=== PATIENT | female | born 1940 | race Caucasian/White ===

== ENCOUNTER 2018-03-21 07:33 | Emergency (ER) | payer MEDICARE ==
[2018-03-21] MEDS ORDERED: Lisinopril TAB* 5 MG PO ONE (11:35)
[2018-03-21 11:58] LABS: Urine Appearance Clear; Urine Blood Negative (Negative); Urine Color Yellow; Urine Ketones Trace (Negative); Urine Protein Negative (Negative); Urine Specific Gravity 1.031 (1.010-1.030); Urine Urobilinogen Negative (Negative)
[2018-03-21 13:01] VITALS: BP 168/103
--- NOTE | 2018-03-22 00:44 | ED ---
Jeffrey Melissa Julia, scribed for Yoon Zee MD on 03/21/18 at 1119 . GI/ HPI - HPI Summary HPI Summary: This patient is a 77 year old F presenting to [facility] accompanied by her granddaughter, Ronel, with a chief complaint of a bad prolapse. She reports previous uterine prolapse but is unsure if the current prolapse is her uterus. These symptoms have been occurring for years but have significantly worsened the past few weeks with pain, hematuria, difficulty with BM's, and burning with urination. Pain is 8/10n in severity. Pain aggravated by sitting. A pessary was placed previously for her prolapse but pt states the pessary just fell out. 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 She has not taken her morning Lisinopril (5mg), but is otherwise not taking any other regular medications. Patient is hoping for a gynecologic referral. - History of Current Complaint Chief Complaint: EDOBProblems Time Seen by Provider: 03/21/18 11:08 Stated Complaint: GI PROBLEM Hx Obtained From: Patient, Family/Deaf And Hard Of Hearing Teacher - granddaughter Onset/Duration: Started Weeks Ago, Worse Since - past month Timing: Constant Severity: Mild Current Severity: Moderate Number of Pads per Day: 0 Number of Pads per Hour: 0 Pain Intensity: 8 Location of Pain: Other - at site of prolapse Additional Location for Females: Uterus - prolapsed Pain Characteristics: Sharp, Burning Associated Signs and Symptoms: Positive: Hematuria, Dysuria, Other: - difficulty with BM's Additional Signs & Symptoms: Positive: Other: - prolapsed uterus Aggravating Factor(s): Straining, Movement - standing, Sitting Alleviating Factor(s): Nothing - Allergy/Home Medications Allergies/Adverse Reactions: Allergies Allergy/AdvReac Type Severity Reaction Status Date / Time No Known Allergies Allergy Verified 03/28/18 03:19 PMH/Surg Hx/FS Hx/Imm Hx Previously Healthy: No Endocrine/Hematology History: Denies: Hx Anticoagulant Therapy, Hx Diabetes, Hx Thyroid Disease Cardiovascular History: Reports: Hx Hypertension Denies: Hx Pacemaker/ICD Respiratory History: Denies: Hx Asthma, Hx Chronic Obstructive Pulmonary Disease (COPD) History: Denies: Hx Renal Disease Neurological History: Denies: Hx Dementia, Hx Seizures Psychiatric History: Denies: Hx Substance Abuse - Surgical History Surgery Procedure, Year, and Place: cholecystectomy, tubal ligation - Immunization History Date of Tetanus Vaccine: 2008 Date of Influenza Vaccine: 2011 Infectious Disease History: No Infectious Disease History: Denies: Hx Hepatitis, Hx Human Immunodeficiency Virus (HIV), Traveled Outside the [place] in Last 30 Days - Family History Known Family History: Positive: Cardiac Disease, Other - cancer - Social History Alcohol Use: None Substance Use Type: Reports: None Smoking Status (MU): Never Smoked Tobacco Review of Systems Constitutional: Negative Cardiovascular: Negative Respiratory: Negative Gastrointestinal: Negative Positive: see HPI - prolapse, dysuria, hematuria, pain Musculoskeletal: Negative Skin: Negative Neurological: Negative Psychological: Normal All Other Systems Reviewed And Are Negative: Yes Physical Exam - Summary Physical Exam Summary: Appearance: well appearing, moderate pain distress, Well-nourished Skin: Warm, color reflects adequate perfusion; confluent redness on labia as per below in Head: Normal Head/Face inspection, Atraumatic Eyes: Conjunctiva clear ENT: Normal inspection Neck: Supple, no nodes, no JVD. Respiratory: Lungs clear, Normal breath sounds, no respiratory distress Cardio: RRR, No murmur, pulses normal, brisk capillary refill Abdomen: soft, nontender, no masses Bowel sounds: present : wearing panti-liner with pink tinged stain, external labia with red confluent rash and satellite lesions, uterine prolapse, cystocele and rectocele observed with cough, easily reducible, when pt stands cystocele protrudes beyond labia approximately one inch, Granddaughter Ronel is the loan teller for the exam. Musculoskeletal: Strength Intact/ ROM intact. No calf tenderness. No edema. Psychological: Normal Neuro: Alert, muscle tone normal, no focal deficit Triage Information Reviewed: Yes Vital Signs On Initial Exam: Initial Vitals Temp Pulse Resp BP Pulse Ox 97.2 F 105 16 170/96 94 03/21/18 07:36 03/21/18 07:36 03/21/18 07:36 03/21/18 07:36 03/21/18 07:36 Vital Signs Reviewed: Yes Diagnostics - Vital Signs Vital Signs Temp Pulse Resp BP Pulse Ox 03/21/18 11:00 87 97 03/21/18 10:51 85 148/102 97 03/21/18 10:21 85 156/107 94 03/21/18 10:00 89 94 03/21/18 09:52 91 166/104 95 03/21/18 09:22 90 152/110 95 03/21/18 09:00 92 94 03/21/18 08:53 95 169/107 96 03/21/18 08:22 98 168/104 94 03/21/18 08:00 103 95 03/21/18 07:52 101 176/114 95 03/21/18 07:51 101 95 03/21/18 07:36 97.2 F 105 16 170/96 94 - Laboratory Lab Statement: Any lab studies that have been ordered have been reviewed, and results considered in the medical decision making process. Re-Evaluation - Re-Evaluation 1 Re-Evaluation Time: 12:20 Change: Unchanged Comment: Pt is informed of discharge and follow up plan. Pt is agreeable to plan. GIGU Course/Dx - Course Course Of Treatment: 77 y/o F presents to ED accompanied by her grandaughterRonel, c/o a vaginal prolapse with dysuria, and hematuria. Uterine prolapse , Rectocele, Cystocele, and vaginitis indicated on examination. Patient's granddaughter Ronel, was the loan teller for exam.UA is indicative of a UTI. Patient has an appointment to see her PCP, Sanya Escalona BUSINESS PROCESS ASSOCIATE, next week. Dr. Guzman agrees to see this patient in his office. UTI will be treated with Bactrim. Vaginitis will be treated with Fluconazole. Patientis advised to apply OTC monistat externally. - Diagnoses Differential Diagnoses - Female: Candidiasis Provider Diagnoses: Uterine prolapse, Vaginitis, UTI (urinary tract infection), Rectocele, Cystocele - Physician Notifications Discussed Care Of Patient With: Gina Guzman - gynecology Time Discussed With Above Provider: 11:40 Instructed by Provider To: Other - will see as an outpatient Discharge - Sign-Out/Discharge Documenting (check all that apply): Discharge/Admit/Transfer - Discharge Plan Condition: Stable Disposition: HOME Prescriptions: Fluconazole 150 MG (NF) [Diflucan 150 mg (NF)] 150 mg PO ONCE #2 tab Sulfamethox/Trimethoprim DS* [Bactrim DS 800/160 TAB*] 1 tab PO BID #20 tab Patient Education Materials: Urinary Tract Infection in Women (ED), Vaginitis ( ED), Rectocele (ED), Cystocele (ED), Uterine Prolapse (ED) Referrals: Gina Guzman MD [Medical Doctor] - As Soon As Possible (Call their office tomorrow) Lyndsey Escalona [Primary Care Provider] - 4 Days (Keep your appt with Lyndsey Escalona, SULA[place]. ) Additional Instructions: We spoke with Dr. Guzman who is hotel recreational facilities manager for the [employer] in [place] today. Call their office to be seen as soon as possible. Take your medications as directed for UTI, and for yeast vaginitis. Change your pad as often as possible so the area stays dry. You may also use monistat cream externally on your labia for the yeast infection. Dr. Guzman suggests that you can try putting vaseline on the pad so that the prolapse is not so tender. Return to the ER if any new or worsening symptoms. Your prescriptions have been sent to [facility] in [place]! :) - Billing Disposition and Condition Condition: STABLE Disposition: HOME The documentation as recorded by the Jeffrey sánchez Julia accurately reflects the service I personally performed and the decisions made by me, Yoon Zee MD.
--- NOTE | 2018-03-25 00:02 | ED ---
Progress - Progress Note Progress Note: Final urine culture shows 25-50,000 strep group B, and 1-10,000 normal shelli. Patient was symptomatic with burning on urination. Was placed on Bactrim twice a day 10 days. continue with same Re-Evaluation - Re-Evaluation 1 Re-Evaluation Time: 12:20 Comment: Pt is informed of discharge and follow up plan. Pt is agreeable to plan. Course/Dx - Course Course Of Treatment: 77 y/o F presents to ED accompanied by her grandauRonel zamora, c/o a vaginal prolapse with dysuria, and hematuria. Rectocele, Cystocele, and vaginitis indicated on examination. Patient's granddaughter Ronel, was the sheet metal fabricator for exam.UA is indicative of a UTI. Patient has an appointment to see her PCP, Sanya Escalona NP, next week. Dr. Guzman agrees to see this patient in her office. UTI will be treated with Bactrim. Vaginitis will be treated with Fluconazole. Patientis advised to apply OTC monistat. - Diagnoses Provider Diagnoses: Uterine prolapse, Vaginitis, UTI (urinary tract infection), Rectocele, Cystocele - Provider Notifications Time Discussed With Above Provider: 11:40 Instructed by Provider To: Other - will see as an outpatient Discharge - Sign-Out/Discharge Documenting (check all that apply): Post-Discharge Follow Up - Discharge Plan Condition: Stable Disposition: HOME Prescriptions: Fluconazole 150 MG (NF) [Diflucan 150 mg (NF)] 150 mg PO ONCE #2 tab Sulfamethox/Trimethoprim DS* [Bactrim DS 800/160 TAB*] 1 tab PO BID #20 tab Patient Education Materials: Urinary Tract Infection in Women (ED), Vaginitis ( ED), Rectocele (ED), Cystocele (ED), Uterine Prolapse (ED) Referrals: Lyndsey Escalona [Primary Care Provider] - 4 Days (Keep your appt with Lyndsey Escalona NP. ) Gina Guzman MD [Medical Doctor] - As Soon As Possible (Call their office tomorrow) Additional Instructions: We spoke with Dr. Guzman who is electronics test engineer for the [employer] group in [place] today. Call their office to be seen as soon as possible. Take your medications as directed for UTI, and for yeast vaginitis. Change your pad as often as possible so the area stays dry. You may also use monistat cream externally on your labia for the yeast infection. Dr. Guzman suggests that you can try putting vaseline on the pad so that the prolapse is not so tender. Return to the ER if any new or worsening symptoms. Your prescriptions have been sent to [facility] in [place]! :) - Billing Disposition and Condition Condition: STABLE Disposition: HOME
== END 2018-03-21 13:01 | disposition home or self-care (01) ==
LOC: ED 07:33
DX: N81.4 Uterovaginal prolapse, unspecified (principal); N76.0 Acute vaginitis; N39.0 Urinary tract infection, site not specified
CPT/HCPCS: 81003; 81015; 87077; 87086; 99283; A9270-GY

== ENCOUNTER 2018-03-28 02:52 | Observation (INO) | payer MEDICARE ==
[2018-03-28] MEDS ORDERED: NS 0.9% 1000 ML* 1,000 ML IV ONE (03:19)
[2018-03-28] MEDS ORDERED: PROCHLORPERAZINE INJ 5 MG/ML 2 ML VIAL IV ONE (03:21)
[2018-03-28 03:54] LABS: ABS Basophils 0.1 10^3/ul (0-0.2); ABS Eosinophils 0 10^3/ul (0-0.6); ABS Lymphocytes 0.9 10^3/ul (1.0-4.8); ABS Monocytes 0.5 10^3/ul (0-0.8); ABS Neutrophils 10.7 10^3/ul (1.5-7.7); ABS Nucleated RBC 0 10^3/ul; Eosinophil % 0.1 % (0-6); Hematocrit 40 % (35-47); Hemoglobin 13.4 g/dl (12.0-16.0); Lymphocyte % 7.1 % (25-47); Mean Corpuscular HGB Conc 34 g/dl (31-36); Mean Corpuscular Hemoglobin 31 pg (27-31); Mean Corpuscular Volume 92 fL (80-97); Nucleated Red Blood Cells % 0; Platelet Count 202 10^3/ul (150-450); Red Cell Distribution Width 14 % (10.5-15); White Blood Count 12.2 10^3/ul (3.5-10.8)
[2018-03-28 04:01] LABS: EGFR Non-African American 95.6 (>60)
[2018-03-28 04:03] LABS: Urine Appearance Clear; Urine Blood Negative (Negative); Urine Color Straw; Urine Ketones Trace (Negative); Urine Protein Negative (Negative); Urine Specific Gravity 1.022 (1.010-1.030); Urine Urobilinogen Negative (Negative)
[2018-03-28] MEDS ORDERED: Meclizine TAB* 12.5 MG PO ONE (06:20)
[2018-03-28] MEDS ORDERED: Diazepam TAB(*) 5 MG PO ONE ×2 (07:56→08:01)
[2018-03-28] MEDS ORDERED: NS 0.9% 1000 ML* 1,000 ML IV SCH (08:00)
[2018-03-28] MEDS ORDERED: PROCHLORPERAZINE INJ 5 MG/ML 2 ML VIAL IV PRN (08:46)
[2018-03-28] MEDS ORDERED: Acetaminophen TAB* 325 MG PO PRN (08:46)
--- NOTE | 2018-03-28 08:57 | ED ---
I, Theo Roberts, scribed for Quang Negron MD on 03/28/18 at 0733 . Progress - Progress Note Progress Note: This patient was signed out from Dr. Rodarte awaiting symptoms resolution. Currently the patient is still dizzy and describes it as the room spinning. She denies CP, HODGSON, and double vision. Re-Evaluation - Re-Evaluation First Eval Re-Evaluation Time: 07:22 Change: Unchanged Comment: She states she still is feeling sick with nausea and dizziness. She states is she can walk she would like to leave. Course/Dx - Course Course Of Treatment: Patient is signed out by Dr. Reveles. He reports that the patient is a 77-year-old female with vertigo. She gave Compazine and meclizine and symptoms have not improved. I Believe the Patient and She Is Unable Secondary to Her Vertigo. At This Point the Patient Was Given Valium and I Discussed the Findings and Results with Dr. Singleton and she accepted patient for admission. Patient was hemodynamically stable alert and oriented 3 - Diagnoses Provider Diagnoses: Vertigo - Provider Notifications Discussed Care Of Patient With: Klaudia Alexander Time Discussed With Above Provider: 08:01 Instructed by Provider To: Admit As Observation Discharge - Sign-Out/Discharge Documenting (check all that apply): Discharge/Admit/Transfer - admitted - Discharge Plan Condition: Fair Disposition: ADMITTED TO [facility] Referrals: Lyndsey Escalona [Primary Care Provider] - - Billing Disposition and Condition Condition: FAIR [place]position[place] [facility] The documentation as recorded by the Armando sánchez Gabriel accurately reflects the service I personally performed and the decisions made by me, Quang Negron MD.
--- NOTE | 2018-03-28 09:15 | RAD ---
HISTORY: Dizziness COMPARISONS: None TECHNIQUE: Multiple contiguous axial CT scans were obtained of the head without intravenous contrast. FINDINGS: HEMORRHAGE/INFARCT: There is no hemorrhage or acute infarct. MASSES/SHIFT: There is no mass or shift. EXTRA-AXIAL SPACES: There are no extra-axial fluid collections. SULCI AND VENTRICLES: The sulci and ventricles are normal in size and position for the patient's stated age. CEREBRUM: There are no focal parenchymal abnormalities. BRAINSTEM: There are no focal parenchymal abnormalities. CEREBELLUM: There are no focal parenchymal abnormalities. VESSELS: The vessels are grossly normal. PARANASAL SINUSES: The paranasal sinuses are clear. ORBITS: The orbits are unremarkable. BONES AND SOFT TISSUE: No bone or soft tissue abnormalities are noted. OTHER: None IMPRESSION: NO ACUTE INTRACRANIAL PATHOLOGY.
[2018-03-28] MEDS: Meclizine TAB* 12.5 MG PO SCH ×3 (11:01→20:04)
[2018-03-28] MEDS: NS 0.9% 1000 ML* 1,000 ML IV SCH ×2 (11:02→22:49)
[2018-03-28] MEDS: Lisinopril TAB* 5 MG PO SCH (11:02)
--- NOTE | 2018-03-28 11:11 | HP ---
CC: Lyndsey Escalona NP HISTORY AND PHYSICAL: DATE OF ADMISSION: 03/28/18 TIME OF EVALUATION: 8:30 a.m. PRIMARY CARE PROVIDER: Lyndsey Escalona NP. CHIEF COMPLAINT: "I am dizzy." HISTORY OF PRESENT ILLNESS: Ms. Millan is a 77-year-old lady with a past medical history of hyperte nsion and uterine prolapse, who presents to the emergency room with complaints of dizziness. She states that last week she was diagnosed with urinary tract infection and was started on Bactrim f or it. She states that she never took this medication before and was not aware of having any reactio ns. Yesterday, she was fasting to have a blood test done and after the test became really dizzy and nauseated to the point that her family had to carry her to [facility]. She states that she felt a little better and went home, but overnight the dizziness became severe, as sociated with multiple episodes of vomiting that prompted her ER visit. She received meclizine, diazepam, IV fluids, and she felt better, but when she tried to ambulate she was very unsteady on her feet and felt nauseated again, so the hospitalist service was consulted. She denies headache, visual changes, fever, chills. She states her dizziness feels like the room is spinning. She does complain of some popping on her right ear, but no pain or discharge. She denies any episodes of dizziness like this in the past. PAST MEDICAL HISTORY: 1. Hypertension. 2. Uterine prolapse. 3. Status post cholecystectomy. MEDICATION LIST: 1. Bactrim DS 1 tablet p.o. b.i.d. 2. Lisinopril 5 mg p.o. daily. 3. Fluconazole 150 mg p.o. x1. ALLERGIES: No known drug allergies. FAMILY HISTORY: Father had a history of heart disease. Brother had pancreatic cancer and had breast cancer. There is also a family history of diabetes. SOCIAL HISTORY: The patient denies alcohol or tobacco use. Surrogate decision maker is her , Eder Millan, phone number is [phone]. REVIEW OF SYSTEMS: A 14-point review of systems was performed and all the pertinent negative and pos itive findings are in the HPI. PHYSICAL EXAMINATION GENERAL: The patient is a pleasant elderly female, lying in bed, in no acute distress. VITAL SIGNS: Temperature 97.5, heart rate is 93, respiratory rate is 18, oxygen saturation is 95% on room air, blood pressure is 149/93. HEENT: Pupils are equal. The patient has nystagmus with fast component to the left. Extraocular mo vements are intact. Moist mucous membranes. CHEST: Breath sounds present bilaterally, with no added sounds. CVS: Normal S1, S2. Regular rate and rhythm. ABDOMEN: Soft. Bowel sounds are present. EXTREMITIES: No edema. NEURO: She is alert, awake, and oriented x3, able to move all 4 extremities. Power is intact in all 4. [id number] is normal. LABORATORY/IMAGING DATA: The patient had a CBC that showed a WBC of 12.2, hemoglobin of 13.4, hemat ocrit of 40, platelets of 202, with 88% neutrophils. Her chemistry showed a sodium of 132, potassium of 3.9, chloride of 103, bicarb of 19, BUN of 18, creatinine of 0.61, glucose of 372, with a calcium of 8.2. Urinalysis showed 3+ glucose, 1+ LE, and trace ketones. ASSESSMENT AND PLAN: Mrs. Millan is a 77-year-old lady with a past medical history of hypertension, uterine prolapse, that presented to the emergency room with complaints of dizziness, found to have v ertigo resistant to treatment provided in the emergency room. 1. Vertigo: I believe this is probably multifactorial in the setting of hyperglycemia and Bactrim u se. Her neurological exam is normal, except for the nystagmus. So, I suspect this is probably perip heral in nature. She will be admitted to telemetry floor. We are going to check a CT of the brain without contrast. She will have neurological checks and symptomatic treatment with meclizine, Valium, and Compazine. If the patient's symptoms persist, we may have to look for a NURSE RN BSN source with an MRI of the brain. 2. Hyperglycemia: The patient denies the diagnosis of diabetes or being told in the past that her g lucose was high. I am going to monitor her fingersticks and check a hemoglobin A1c to confirm that t his hyperglycemia is diabetes. 3. Hypertension: Her blood pressure is controlled. I am going to continue her lisinopril as tolera feliciano. 4. DVT prophylaxis: The patient has a score of 3 on the DVT Prophylaxis Risk Assessment Guide and s he will be started on subcutaneous heparin. 5. Code status is full. TIME SPENT: Approximately 45 minutes were spent with the patient and family interview, medical recor ds review, physical examination to complete this admission; more than half of this time was spent fac e-to-face with the patient and coordination of care. [id number]/[facility] #: [id number]
[2018-03-28] MEDS ORDERED: Dextrose 50% Syringe 50 ML* 25 GM/50 ML SYRINGE IV PUSH PRN (11:21)
[2018-03-28] MEDS: Diazepam TAB(*) 5 MG PO SCH ×2 (11:39→17:45)
[2018-03-28] MEDS: Heparin VIAL(*) 5000 UNITS/ML VIAL (FIVE THOUSAND) SUBCUT SCH ×2 (13:26→20:04)
[2018-03-28] MEDS: Insulin LISPRO* 1 UNITS UNIT SUBCUT SCH ×3 (13:27→20:04)
[2018-03-29] MEDS: Diazepam TAB(*) 5 MG PO SCH ×2 (03:32→08:19)
[2018-03-29] MEDS: Meclizine TAB* 12.5 MG PO SCH ×2 (04:46→13:23)
[2018-03-29] MEDS: Heparin VIAL(*) 5000 UNITS/ML VIAL (FIVE THOUSAND) SUBCUT SCH ×2 (04:46→13:21)
[2018-03-29] MEDS: Lisinopril TAB* 5 MG PO SCH (08:18)
[2018-03-29] MEDS: NS 0.9% 1000 ML* 1,000 ML IV SCH (08:19)
[2018-03-29] MEDS: Insulin LISPRO* 1 UNITS UNIT SUBCUT SCH ×2 (08:19→12:09)
[2018-03-29] MEDS ORDERED: glipiZIDE TAB.XL* 5 MG PO SCH (09:00)
[2018-03-29 11:35] VITALS: BP 140/83
--- NOTE | 2018-03-29 14:23 | CONSULT ---
Subjective Reason for Visit: Dizziness Admission Date: 03/28/18 Glucose Level On Admission: 372 History Of Present Illness: Ms. Millan is a 77 year old female, who presented to the ER on 03/28/18 complaining of dizziness. She had been fasting for blood work and after the test was complete she became dizzy, nauseated and weak. Later that night, symptoms worsened and she began vomiting, at which point her family took her to the ER. Blood glucose on admission was noted to be 372. Hgb A1C 12%. Pt was given new diagnosis of type II diabetes. Of note, she does report ongoing treatment for chronic UTI and had been started on Bactrim DS this week. Patient History Surgical History: Yes Surgery Procedure, Year, and Place: cholecystectomy, tubal ligation Lives With: Family Marital Status: Social Support: at bedside. Multiple family members in the area. Preferred/Primary Language: Czech Hx Tobacco Use: No Review Of Systems - Review of Systems Constant: - - As stated in HPI Respiratory: No Shortness Of Breath Neurological: - - As stated in HPI Objective Allergies Allergy/AdvReac Type Severity Reaction Status Date / Time No Known Allergies Allergy Verified 03/28/18 03:19 Home Medications Medication Instructions Recorded Confirmed Type Lisinopril TAB* [Prinivil TAB 10 5 mg PO DAILY 02/14/13 03/28/18 History MG*] Blood-Glucose Meter [Onetouch 1 strip XX DAILY #50 strip 03/29/18 Rx Ultra 2] Diazepam TAB(*) [Valium TAB(*)] 5 mg PO Q8H #10 tab MDD 15mg 03/29/18 Rx Lancets [Onetouch Ultrasoft Lancet] 1 mis XX DAILY #50 mis 03/29/18 Rx Meclizine HCl [Dramamine Less 25 mg PO TID #30 tablet 03/29/18 Rx Drowsy] glipiZIDE TAB.XL* [Glucotrol Xl*] 5 mg PO DAILY #30 tab.xl 03/29/18 Rx Hospital Medications: Current Medications Acetaminophen (Tylenol Tab*) 650 mg PO Q6H PRN PRN Reason: pain/fever Dextrose (D50w Syringe 50 Ml*) 12.5 gm IV PUSH .FOR FS < 60 - SS PRN PRN Reason: FS < 60 Diazepam (Valium Tab(*)) 5 mg PO Q8H VALERIO Last Admin: 03/29/18 08:19 Dose: 5 mg Glipizide (Glucotrol Xl*) [address] [facility] Last Admin: 03/29/18 08:18 Dose: 5 mg Heparin Sodium (Porcine) (Heparin Vial(*)) 5,[address] [facility] Last Admin: 03/29/18 13:21 Dose: Not Given Sodium Chloride (Ns 0.9% 1000 Ml*) 1,000 mls @ 100 mls/hr IV PER RATE [facility] Last Admin: 03/29/18 08:19 Dose: 100 mls/hr Insulin Human Lispro (Humalog*) [address] [facility] PRN Reason: Protocol Last Admin: 03/29/18 12:09 Dose: 3 units Lisinopril (Prinivil Tab*) [address] [facility] Last Admin: 03/29/18 08:18 Dose: 5 mg Meclizine HCl (Antivert Tab*) [address] [facility] Last Admin: 03/29/18 13:23 Dose: 25 mg Prochlorperazine Edisylate (Compazine Inj*) 5 mg IV Q6H PRN PRN Reason: NAUSEA/VOMITING Lab Data: Sodium 132 mmol/L (139-145) L 03/28/18 03:34 Potassium 3.9 mmol/L (3.5-5.0) 03/28/18 03:34 BUN 18 mg/dL (6-24) 03/28/18 03:34 Creatinine 0.61 mg/dL (0.51-0.95) 03/28/18 03:34 Hemoglobin A1c 12.0 % (4.0-5.6) H 03/28/18 03:34 Calcium 8.2 mg/dL (8.6-10.3) L 03/28/18 03:34 Vital Signs: Vital Signs 03/29/18 03/29/18 03/29/18 06:29 07:25 08:19 Temperature 36.7 C Pulse Rate 73 Respiratory 18 20 18 Rate Blood Pressure 130/73 (mmHg) O2 Sat by Pulse 98 Oximetry 03/29/18 03/29/18 10:40 11:06 Temperature 36.7 C Pulse Rate 82 Respiratory 18 16 Rate Blood Pressure 140/83 (mmHg) O2 Sat by Pulse 98 Oximetry Height: 4 ft 11 in Weight: 52.435 kg Body Mass Index (BMI): 23.3 Physical Exam General Appearance: Positive: Alert, Oriented x3, Well Developed, No Distress Dentition: Positive: Dentition in Good Repair Cardiovascular: Positive: RRR Plan Of Care Patient's Next Step: Plan is for patient to be discharged on Glipizide. We discussed signs, symptoms , prevention, and treatment of hypoglycemia. Emphasized the importance of regular meal pattern, consistent CHO diet on this medication. She was given a glucometer and given instruction on its use. She provided return demonstration x2. Lifestyle modification briefly discussed, pt agrees to outpatient follow up at [facility] upon discharge. Referral To: [facility] For Further OutPT Diabetic Training, DSME Diagnosis: Type II diabetes with hyperglycemia Education Prior Diabetic Education: No Education Provided: Blood Glucose Monitoring, When To Seek Medical Attention Handouts Provided: Living Well With Diabetes, 45 g. CHO meal plan, My Plate Goals Goals: According to the [place] [employer], the following are your goals for Hemaglobin A1C, Blood Glucose. Hemaglobin A1C * <7.0% for most * <6.5% for "healthy" * <8.0% for "Less Healthy" Blood Glucose * Fasting Blood Glucose: 80-130 mg/dl * 2 Hour Post Prandial Glucose <180 mg/dl
--- NOTE | 2018-04-01 01:10 | ED ---
Jeffrey Melissa Julia, scribed for Jose Angel Rodarte MD on 03/28/18 at 0417 . Dizziness - HPI Summary HPI Summary: This patient is a 77 year old F BIBA to [facility] accompanied by her family with a chief complaint of dizziness and vomiting for the past couple of days that has worsened today. Patient reports a currently resolved headache. About a week ago she started Sulfa drugs to treat a UTI. She had mild dizziness this past week. She fasted prior to bloodwork yesterday morning and had increased nausea, and dizziness now with vomiting. Dizziness is described as spinning. Dizziness worsened with head movement. - History Of Current Complaint Chief Complaint: EDNauseaVomitDiarrh Stated Complaint: NAUSEA/VOMITING Time Seen by Provider: 03/28/18 03:09 Hx Obtained From: Patient Onset/Duration: Gradually Severity Initially: Mild Severity Currently: Moderate Character: Room Spinning Aggravating Factor(s): Change In Head Position Alleviating Factor(s): Nothing Associated Signs And Symptoms: Positive: Nausea, Vomiting - Allergies/Home Medications Allergies/Adverse Reactions: Allergies Allergy/AdvReac Type Severity Reaction Status Date / Time No Known Allergies Allergy Verified 03/28/18 03:19 PMH/Surg Hx/FS Hx/Imm Hx Endocrine/Hematology History: Reports: Hx Diabetes Denies: Hx Anticoagulant Therapy, Hx Thyroid Disease Cardiovascular History: Reports: Hx Hypertension Denies: Hx Pacemaker/ICD Respiratory History: Denies: Hx Asthma, Hx Chronic Obstructive Pulmonary Disease (COPD) History: Reports: Other Problems/Disorders - prolapse uterus Denies: Hx Renal Disease Neurological History: Denies: Hx Dementia, Hx Seizures, Other Neuro Impairments/Disorders - vertigo Psychiatric History: Denies: Hx Substance Abuse - Surgical History Surgery Procedure, Year, and Place: cholecystectomy, tubal ligation - Immunization History Date of Tetanus Vaccine: 2008 Date of Influenza Vaccine: 2011 Infectious Disease History: No Infectious Disease History: Denies: Hx Hepatitis, Hx Human Immunodeficiency Virus (HIV), Traveled Outside the [place] in Last 30 Days - Family History Known Family History: Positive: Cardiac Disease, Other - cancer - Social History Alcohol Use: None Substance Use Type: Reports: None Smoking Status (MU): Never Smoked Tobacco Review of Systems Positive: Vomiting, Nausea Neurological: Other - dizziness All Other Systems Reviewed And Are Negative: Yes Physical Exam - Summary Physical Exam Summary: Appearance: Well-appearing, Well-nourished, lying in bed comfortably Skin: Warm, dry, no obvious rash Eyes: sclera anicteric, no conjunctiva pallor, PERRL, no extra ocular movement ENT: mucous membranes moist, pharynx appears normal Neck: Supple, nontender Respiratory: Clear to auscultation, no signs of respiratory distress Cardiovascular: Normal S1, S2. No murmurs. Normal distal pulses in tibial and radial bilaterally. Abdomen: Soft, nontender, normal active bowel sounds present Musculoskeletal: Normal, Strength/ROM Intact Neurological: A&Ox3, awake and alert, mentation is normal, speech is fluent and appropriate, negative finger to nose, no ataxia, no nystagmus to either direction Psychiatric: affect is normal, does not appear anxious or depressed Triage Information Reviewed: Yes Vital Signs On Initial Exam: Initial Vitals Pulse BP Pulse Ox 80 186/109 96 03/28/18 02:50 03/28/18 02:50 03/28/18 02:50 Vital Signs Reviewed: Yes Diagnostics - Vital Signs Vital Signs Temp Pulse Resp BP Pulse Ox 03/28/18 03:04 81 96 03/28/18 03:02 97.5 F 77 18 186/109 96 03/28/18 02:50 80 186/109 96 - Laboratory Lab Results: Lab Results 03/28/18 03/28/18 03/28/18 Range/Units 03:34 03:34 03:50 WBC 12.2 H (3.5-10.8) 10^3/ul RBC 4.30 (4.0-5.4) 10^6/ul Hgb 13.4 (12.0-16.0) g/dl Hct 40 (35-47) % MCV 92 (80-97) fL MCH 31 (27-31) pg MCHC 34 (31-36) g/dl RDW 14 (10.5-15) % Plt Count 202 (150-450) 10^3/ul MPV 8.0 (7.4-10.4) um3 Neut % (Auto) 88.1 H (38-83) % Lymph % (Auto) 7.1 L (25-47) % [place] % (Auto) 4.1 (0-7) % Eos % (Auto) 0.1 (0-6) % Baso % (Auto) 0.6 (0-2) % Absolute Neuts (auto) 10.7 H (1.5-7.7) 10^3/ul Absolute Lymphs (auto) 0.9 L (1.0-4.8) 10^3/ul Absolute Monos (auto) 0.5 (0-0.8) 10^3/ul Absolute Eos (auto) 0 (0-0.6) 10^3/ul Absolute Basos (auto) 0.1 (0-0.2) 10^3/ul Absolute Nucleated RBC 0 10^3/ul Nucleated RBC % 0 Sodium 132 L (139-145) mmol/L Potassium 3.9 (3.5-5.0) mmol/L Chloride 103 (101-111) mmol/L Carbon Dioxide 19 L (22-32) mmol/L Anion Gap 10 (2-11) mmol/L BUN 18 (6-24) mg/dL Creatinine 0.61 (0.51-0.95) mg/dL Est GFR ( Amer) 123.0 (>60) Est GFR (Non-Af Amer) 95.6 (>60) BUN/Creatinine Ratio 29.5 H (8-20) Glucose 372 H (70-100) mg/dL Calcium 8.2 L (8.6-10.3) mg/dL Urine Color Straw Urine Appearance Clear Urine pH 7.0 (5-9) Ur Specific [place] 1.022 (1.010-1.030) Urine Protein Negative (Negative) Urine Ketones Trace A (Negative) Urine Blood Negative (Negative) Urine Nitrate Negative (Negative) Urine Bilirubin Negative (Negative) Urine Urobilinogen Negative (Negative) Ur Leukocyte Esterase 1+ A (Negative) Urine WBC (Auto) Trace(0-5/hpf) (Absent) Urine RBC (Auto) Trace(0-2/hpf) (Absent) Ur Squamous Epith Cells Present A (Absent) Urine Bacteria Absent (Absent) Urine Glucose 3+(>=500 mg/dl) A (Negative) Result Diagrams: 03/28/18 03:34 03/28/18 03:34 Lab Statement: Any lab studies that have been ordered have been reviewed, and results considered in the medical decision making process. Dizzy Course/Dx - Course Course Of Treatment: She is feeling better with respect to nausea after IV compazine but still quite vertiginous. We will try some oral meclizine and then attempt to ambulate. She may require admission for intractable vertigo. She also has quite marked nystagmus even at rest. HIT is c/w peripheral vertigo. - Diagnoses Provider Diagnoses: Vertigo Discharge - Sign-Out/Discharge Documenting (check all that apply): Sign-Out Patient Signing out patient TO: Quang Negron - pending re eval after meclizine - Discharge Plan Condition: Good Disposition: ADMITTED TO [facility] - Billing Disposition and Condition Condition: GOOD Disposition: [facility] [place] The documentation as recorded by the Jeffrey sánchez Julia accurately reflects the service I personally performed and the decisions made by me, Jose Angel Rodarte MD.
--- NOTE | 2018-04-01 05:30 | DS ---
CC: Lyndsey Escalona NP * DISCHARGE SUMMARY: DATE OF ADMISSION: 03/28/18 DATE OF DISCHARGE: 03/29/18 PRIMARY CARE PROVIDER: Lyndsey Escalona NP DISCHARGE DIAGNOSES: 1. Vertigo. 2. Newly diagnosed diabetes. SECONDARY DIAGNOSES: 1. Hypertension. 2. Uterine prolapse. 3. Status post cholecystectomy. MEDICATION LIST: 1. Lisinopril 5 mg p.o. daily. 2. Glipizide 5 mg p.o. daily. 3. Meclizine 25 mg p.o. t.i.d. 4. Diazepam 5 mg p.o. q.8 hours, MDD 15 mg for 5 days. The patient also received prescription for glucometer and supplies. HOSPITAL COURSE: Ms. Millan is a 77-year-old lady with a past medical history as stated above that presented to the emergency room with complaints of dizziness that she initially associated with Bactrim use. For more details about her presentation, I refer you to her history and physical. The patient has findings of peripheral vertigo on her physical examination including nystagmus. She had significant symptomatic improvement with meclizine and diazepam with resolution of nystagmus and improvement of her dizziness. In the emergency room, she was found to have initial glucose of 372 and hemoglobin A1c was elevated at 12. The patient states in the past, she was told she was glucose intolerant and had tried metformin, but could not tolerate it due to GI upset. She was seen by Evelyn Venegas NP, from [facility] and received diabetes education and was also educated on how to use a glucometer. She will also follow at [facility] after discharge. The patient is medically stable for discharge today to follow up with Lyndsey Escalona NP, as outpatient. PHYSICAL EXAMINATION: Vital Signs: Temperature 98.1, heart rate is 82, respiratory rate is 16, oxygen saturation 98% on room air, blood pressure is 140 /83. General: The patient is a pleasant elderly lady sitting up on the bed, in no acute distress. CVS: Normal S1 and S2. Regular rate and rhythm. Chest : Breath sounds present bilaterally with no added sounds. Extremities: No edema. Neuro: She is alert, awake, oriented x3. Able to move all 4 extremities. Nystagmus is resolved. DIET: Consistent carb diet. ACTIVITIES: As tolerated. DISPOSITION: To home. STATUS WHILE IN THE HOSPITAL: Observation. Please keep in mind this is a summarized version of this patient's hospital stay. If you need more information, please feel free to call me at [phone] or please obtain the full medical records. TIME SPENT: Approximately 45 minutes was spent to complete this discharge. [id number]/CPS #: [id number] MTDD
== END 2018-03-29 14:43 | disposition home or self-care (01) ==
LOC: ED 02:52 → MEDTELE 08:43
PROVIDERS: ADMIT Internal Medicine; ATTEND Internal Medicine
DX: R42 Dizziness and giddiness (principal); R73.9 Hyperglycemia, unspecified; I10 Essential (primary) hypertension; N81.4 Uterovaginal prolapse, unspecified; Z79.899 Other long term (current) drug therapy; Z82.49 Family history of ischemic heart disease and other diseases of the circulatory system
CPT/HCPCS: 36415; 70450; 80048; 81003; 81015; 83036; 85025; 87086; 96372; 99221; 99285; A9270-GY; G0378; J0780; J1644

== ENCOUNTER 2018-06-18 08:10 | Inpatient (IN) | payer MEDICARE ==
[~2018-06-18 08:10] MED LIST: Buffered Lidocaine 0.9% SYRIN* 5 ML/SYR SYRINGE INTRADERM ONE; Famotidine IV* 10 MG/ML 2 ML (20 mg) IV ONE; Scopolamine 1.5 mg* PATCH TRANSDERM ONE
--- OUTSIDE RECORDS SUMMARY | 2018-06-18 08:17 | XMS REPORT ---
:1940 External Reference #:[id number] Author Organization [facility] Address [address] [address] Phone [phone] Care Team Providers Name Role Phone Lyndsey Escalona, LUCIANA MS [employer]NALYST [employer]IGENCE Care Team Information [employer] Counter Assistant Unavailable Payers Type Date Identification Numbers Payment Provider Subscriber Commercial Effective: Policy Number: BCBS Medicare Gus Marinajustin Millan 2017 [id number] Group Number: [id number] [address] [address] Group Name: [facility] [place] [id number] PayID: [id number] Problems Date Description Provider Status Onset: 03/16/2013 Mixed hyperlipidemia Lyndsey Escalona RN MS [employer] Active Onset: 03/16/2013 Low back pain Lyndsey Escalona, RN MS [employer] Active Onset: 03/16/2013 Benign essential hypertension Lyndsey Escalona, RN MS [employer] Active Onset: 03/16/2013 Generalized anxiety disorder Lyndsey Escalona, RN MS [employer] Active Family History Date Family Member(s) Problem(s) Comments Father due to Athrosclorisis () Father Tobacco Abuse Father COPD Mother due to Carbon Monixide () - age Poisoning 69 First Brother Hypertension First Brother Hypercholesterolemia : (age Maternal Grandmother due to Old Age 96 Years) Paternal Uncles Diabetes, Adult Paternal Aunts Cancer, Breast Social History Type Date Description Comments Marital Status Lives With Spouse Smoke-Free Home is smoke-free Pets 1 dog 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 active Achy Legs 04/01/2018 Bactrim Nausea and Vomiting active 08/20/2006 NKDA inactive Medications Medication Date Status Form Strength Qnty SIG Indications Ordering Provider Shingrix 05/21 Active Suspension 50mcg 1units one Z23 Rec injection Lyndsey as Jaclyn RN MS directed [employer] Levothyroxine 04/21 Active Tablets 25mcg 90tabs 1 by E03.9 mouth Lyndsey every day Jaclyn, RN MS [employer] Glipizide 04/01 Active Tablets 5mg 90tabs 1 by mouth Lyndsey every day Jaclyn, RN MS [employer] Freestyle Lite 04/01 Active Strips 180units for twice E11.65 Iqra, a day Lyndsey glucose Jaclyn, RN MS testing [facility] e11.65 Vitamin D-400 02/19 Active Tablets 400Unit One Daily Iqra Lyndsey Anaya, RN MS [employer] Lisinopril 02/27 Active Tablets 5mg 90tabs 1 by I10 [place] mouth Lyndsey every day Jaclyn, RN MS [facility] Vitamin B 08/20 Active Capsules Z00.00 Iqra Complex 50 Lyndsey Anaya, RN MS [employer] Januvia 04/28 Hx Tablets 50mg 30tabs One A Day Lyndsey - Jaclyn RN MS 05/05 Nitrofurantoin 04/21 Hx Capsules 100mg 14caps one tab R31.9 Iqra twice a Lyndsey - day x 7 Jaclyn RN MS 05/21 days Metformin HCL 05/06 Hx Tablets 500mg 45tabs take 1 tablets Lyndsey - once Jaclyn RN MS 03/25 daily for 1- 2 weeks then may take twice a day with meals Vitamin 02/19 Hx Tablets Iqra B- Lyndsey - Jaclyn RN MS 02/19 Azithromycin 12/02 Hx Tablets 500mg 3tabs 1 by Em.Rohit Degroot mouth Lisha - every day MD Jagdeep 12/05 Proair HFA 12/02 Hx Aerosol 108(90Bas 17gm 2 puffs Mariah18.Rohit Degroot e) every 6 Lisha - mcg/Act hours as MD Jagdeep 12/12 wheezing/ sob [Substitu e as needed] Levothyroxine 08/28 Hx Tablets 25mcg 90tabs 1 by Karen Escalona mouth Lyndsey - every day C RN MS 09/03 Lidoderm 08/10 Hx Patches 5% I3Lljiqm apply 782.9 patch Lyndsey - daily as Jaclyn RN MS 02/27 directed. leave on for 12 hours/day only. march cut to fit tender area. Atorvastatin 03/16 Hx Tablets 10mg 30tabs 1 po qd 272.2 Iqra Calcium Lyndsey Anaya RN MS 08/10 Diclofenac 03/[address] 50mg 60tabs 1 po bid 724.[address] as Needed Lyndsey - For Pain Jaclyn RN MS 08/10 Fish Oil + D3 02/16 Hx Capsules [id number] 272.2 mg-Unit Lyndsey Anaya RN MS 02/27 Lisinopril 02/16 Hx Tablets 5mg 90tabs 1 po qd 272.2 Lyndsey Anaya RN MS 08/10 Flexeril 02/16 Hx Tablets 10mg 45tabs 1/2 tab q8rs and Lyndsey - 1 tab hs Jaclyn RN MS 08/10 prn muscle spasm Return To Work 06/23 Hx march return to Lyndsey - full duty LUCIANA Anaya MS 07/03 as of 06/28/12March Return To 03/23 Hx after 782.8 Iqra, Work Only 04/05/2012 Lyndsey Anaya RN MS Special Gloves 03/23 Pravachol 03/23 Hx Tablets 20mg 90tabs One Daily 782.8 Lyndsey Anaya RN MS 02/16 Out Of Work 03/23 Hx For for the Medical rest of Lyndsey - Reasons school Jaclyn RN MS 04/02 year. No Work For 02/11 Hx 782.8 Iqra, Rest Of School /2011. - Jaclyn RN MS 02/11 No Work 02/11 Hx For D/t 782.8 Medical allergic Lyndsey - Reasons skin C, RN MS 02/21 reactions to hands and high blood pressure readings. till april 05. Drisdol 11/27 Hx Capsules [id number] 8caps 1 tab po q weekly Lyndsey - for 8 C, RN MS 02/11 weeks Cipro 11/06 Hx Tablets 250mg 6tabs 1 po bid x 3 days Lyndsey - C, RN MS 11/16 Actonel 07/24 Hx Tablets 150mg 1tabs one tab monthly Lyndsey - as C, RN MS 07/24 directed. Dexilant 07/[address] 60mg Samples One Daily 789.06 Lyndsey - C, RN MS 10/31 Actonel 07/24 Hx Tablets 150mg 1tabs one tab 733.02 monthly Lyndsey - as C, RN MS 10/31 directed. Fosamax 10/20 Hx Tablets 70mg 4tabs 1 po 733.02 qweek on Lyndsey - empty C, RN MS 10/31 stomach as dir isdol 10/18 Hx Capsules [id number] 8caps 1 tab po q weekly Lyndsey - for 8 C, RN MS 10/28 weeks Boniva 10/16 Hx Tablets 150mg 3tabs 1 po q 733.02 month Lyndsey - C, RN MS 10/20 Fosamax 06/29 Hx Tablets 70mg 12tabs 1 PO 733.02 qweek On Lyndsey - Empty C, RN MS 10/16 Stomach as Dir Simvastatin 03/28 Hx Tablets 20mg 90tabs One Zane Tablet Lisha - Asad Gannon MD 11/25 Lisinopril 03/28 Hx Tablets 10mg 90tabs 1 PO qd Iqra Lyndsey - C, RN MS 02/16 Fasting Lab 03/28 Hx DX 272.2 lipid Iqra, Test In May treatment Lyndsey (Late) - jeanne Anaya, LUCIANA MS 10/18 fax report to [facility] 09/21 Hx Tablets 20mg 90tabs 1 PO qd 272.0 Iqra, Lyndsey Anaya, RN MS 02/20 Fasting Blood 09/21 Hx DX 272.0 lipid 272.0 Iqra treatment Lyndsey - jeanne Anaya, LUCIANA MS 02/20 Due in s-8 weeks from above date Calcium Plus 08/20 Hx Tablets 500mg 0tabs 1 PO qd V70.0 Iqra Vit D Lyndsey Anaya, LUCIANA MS 02/27 Vitamin C 08/20 Hx Capsules 500mg 30caps 1 PO qd V70.0 Iqra Lyndsey Anaya, LUCIANA MS 02/20 Vitamin E 08/20 Hx Tablets 200Units V70.0 Iqra Lyndsey Anaya RN MS 02/20 Multi For OTC 00/ Hx Tablets 1 by Unknown /0000 mouth - every day 02/19 Krill Oil 00 Hx Capsules 1000mg 1 by Unknown /0000 mouth - every day 05/21 Diazepam 00 Hx Concentrate 5mg/ml 1 PO Unknown /0000 Q8HRS - 05/21 Glipizide 00 Hx Tablets 5mg 1 by [place], /0000 mouth Lyndsey - every day LUCIANA Anaya MS 04/01 Meclizine HCL 00 Hx Tablets 25mg 30tabs 1 by [place], /0000 mouth Lyndsey - three Jaclyn RN MS 05/21 times a day as needed Immunizations CPT Code Status Date Vaccine Lot # [id number] Given 09/19/2016 Influenza Vac, 3 Yrs & Older, Quadrivalent, Split, [place] Use 88745 Given 08/21/2016 Tdap (Adacel) Ages 7 And Above Only [id number] 24446 Given 02/01/2015 Prevnar 13 Pneumococal Conjugate Vaccine 11976 Given 02/01/2015 Prevnar 13 Pneumococal Conjugate Vaccine [id number] 96401 Given 10/23/2009 Influenza Virus Vaccine Pandemic Formulation - [id number] 72100 Given 10/23/2009 Administration Swine Flu Vaccine [id number] 39837 Given 08/22/2008 Afluria Or Fluvirin Flu Vac Intramuscular 20226 Given 08/22/2008 Afluria Or Fluvirin Flu Vac Intramuscular [id number] 01727 Given 07/04/2008 Zoster (Zostavax) 22716 Given 07/04/2008 Zoster (Zostavax) [id number] 11091 Given 09/21/2007 Afluria Or Fluvirin Flu Vac Intramuscular 02859 Given 08/19/2006 Afluria Or Fluvirin Flu Vac Intramuscular 61771 Given 08/19/2006 Afluria Or Fluvirin Flu Vac Intramuscular 72895 Given 08/11/2005 Pneumococcal 23 Immunization Adult Or Immunosuppressed Patient 94366 Given 08/11/2005 Pneumococcal 23 Immunization Adult Or Immunosuppressed Patient 75999 Given 08/11/2005 Afluria Or Fluvirin Flu Vac Intramuscular 44265 Given 08/11/2005 Afluria Or Fluvirin Flu Vac Intramuscular 62983 Given 08/16/2004 Afluria Or Fluvirin Flu Vac Intramuscular 11974 Given 10/09/1999 Immunization Td 7 Yrs Or Older 57477 Refused 08/21/2016 Influenza Vac, 3 Yrs & Older, Quadrivalent, Split, Im Use Vital Signs Date Vital Result Comment 05/21/2018 Weight 116.25 lb Heart Rate 89 /min BP Systolic 140 mmHg BP Diastolic 82 mmHg 04/21/2018 Weight 117.25 lb Heart Rate 95 /min BP Systolic 144 mmHg BP Diastolic 95 mmHg Height 59.5 inches 4'11.50" BMI (Body Mass Index) 23.3 kg/m2 04/01/2018 Weight 118.25 lb Heart Rate 106 /min BP Systolic 138 mmHg BP Diastolic 85 mmHg Height 59.5 inches 4'11.50" BMI (Body Mass Index) 23.5 kg/m2 03/25/2018 Weight 117.00 lb Heart Rate 105 /min BP Systolic 154 mmHg BP Diastolic 92 mmHg Height 59.5 inches 4'11.50" BMI (Body Mass Index) 23.2 kg/m2 02/19/2017 Weight 119.00 lb Heart Rate 88 /min BP Systolic 154 mmHg My Cuff BP Diastolic 96 mmHg My Cuff BP Systolic Recheck 169 mmHg PTS Cuff BP Diastolic Recheck 101 mmHg PTS Cuff BP Systolic Lying Down 157 mmHg PTS Cuff BP Diastolic Lying Down 99 mmHg PTS Cuff Height 59.5 inches 4'11.50" BMI (Body Mass Index) 23.6 kg/m2 12/02/2016 Body Temperature 97.6 F Weight 121.38 lb Heart Rate 110 /min BP Systolic 196 mmHg BP Diastolic 107 mmHg BP Systolic Recheck 165 mmHg BP Diastolic Recheck 106 mmHg Height 59.5 inches 4'11.50" BMI (Body Mass Index) 24.1 kg/m2 08/21/2016 Weight 120.00 lb Heart Rate 84 /min BP Systolic 156 mmHg BP Diastolic 89 mmHg Height 59.5 inches 4'11.50" BMI (Body Mass Index) 23.8 kg/m2 02/28/2016 Weight 121.00 lb Heart Rate 88 /min BP Systolic 171 mmHg BP Diastolic 98 mmHg BP Systolic Recheck 158 mmHg BP Diastolic Recheck 90 mmHg Height 59.5 inches 4'11.50" BMI (Body Mass Index) 24.0 kg/m2 08/10/2013 Weight 120.00 lb Heart Rate 96 /min BP Systolic 175 mmHg BP Diastolic 98 mmHg 03/16/2013 Weight 118.00 lb Heart Rate 86 /min BP Systolic 150 mmHg BP Diastolic 90 mmHg 02/16/2013 Weight 117.00 lb Heart Rate 90 /min BP Systolic 133 mmHg BP Diastolic 86 mmHg 03/23/2012 Weight 118.00 lb Heart Rate 78 /min BP Systolic 129 mmHg BP Diastolic 79 mmHg 02/12/2012 Weight 120.00 lb Heart Rate 71 /min BP Systolic 168 mmHg BP Diastolic 87 mmHg 11/25/2011 Weight 117.00 lb Heart Rate 81 /min BP Systolic 137 mmHg BP Diastolic 81 mmHg Height 59 inches 4'11" BMI (Body Mass Index) 23.6 kg/m2 10/31/2010 Weight 116.00 lb Heart Rate 73 /min BP Systolic 146 mmHg Has Not Taken BP Meds This A.M BP Diastolic 89 mmHg Has Not Taken BP Meds This A.M Height 59 inches 4'11" BMI (Body Mass Index) 23.4 kg/m2 07/24/2010 Body Temperature 97.3 F Weight 117.00 lb Heart Rate 85 /min BP Systolic 154 mmHg BP Diastolic 90 mmHg 10/11/2009 Weight 114.00 lb Heart Rate 74 /min BP Systolic 144 mmHg BP Diastolic 81 mmHg Height 59.5 inches 4'11.50" BMI (Body Mass Index) 22.6 kg/m2 06/29/2008 Weight 121.00 lb Heart Rate 76 /min BP Systolic 132 mmHg BP Diastolic 80 mmHg Height 58.75 inches 4'10.75" BMI (Body Mass Index) 24.6 kg/m2 02/21/2008 Weight 118.00 lb Heart Rate 71 /min BP Systolic 160 mmHg BP Diastolic 99 mmHg Height 58.75 inches 4'10.75" BMI (Body Mass Index) 24.0 kg/m2 09/21/2006 Weight 115.00 lb Heart Rate 84 /min BP Systolic 170 mmHg BP Diastolic 88 mmHg Height 59.5 inches 4'11.50" BMI (Body Mass Index) 22.8 kg/m2 08/20/2006 Weight 116.00 lb Heart Rate 80 /min BP Systolic 13 mmHg BP Diastolic 92 mmHg Height 59.5 inches 4'11.50" BMI (Body Mass Index) 23.0 kg/m2 Results Test Date Test Result H/L Range Note Hemoglobin A1c 05/21/2018 Hemoglobin A1c 9.4 % High 4.1-5.9 Estimated Average Glucose Calc 223 mg/dL High 71-140 Comprehensive Met Panel-[facility]CMG 05/21/2018 Sodium 139 mmol/L 135-146 1 Potassium 5.2 mmol/L 3.5-5.2 Chloride# 104 mmol/L 97-110 2 Carbon Dioxide 24 mmol/L 24-34 Glucose 104 mg/dL 70-105 BUN 20 mg/dL 6-26 Creatinine 0.6 mg/dL 0.5-1.4 Calcium 10.0 mg/dL 8.5-10.2 Total Protein 7.5 g/dL 6.0-8.0 Albumin 4.3 g/dL 3.6-4.9 Globulin 3.2 g/dL 2.0-3.5 A/G Ratio 1.3 Ratio 1.0-2.2 Total Bilirubin 0.4 mg/dL 0.1-1.3 Alkaline Phosphatase 107 U/L 24-140 Alt 20 U/L 3-42 Ast 16 U/L 8-42 Keesha Egfr >60 >60 3 Non Keesha Egfr >60 >60 4 Anion Gap 11 mmol/L 5-15 5 Laboratory test 05/21/2018 TSH 0.08 uIU/mL Low 0.35-4.94 finding Laboratory test 04/21/2018 Urine Culture Microbiology res 6, 7 finding <SEE NOTE> Comprehensive Met 04/21/2018 Sodium 140 mmol/L 135-146 8 Panel-[facility]CMG Potassium 5.2 mmol/L 3.5-5.2 Chloride# 102 mmol/L 97-110 9 Carbon Dioxide 27 mmol/L 24-34 Glucose 85 mg/dL 70-105 BUN 18 mg/dL 6-26 Creatinine 0.6 mg/dL 0.5-1.4 Calcium 10.1 mg/dL 8.5-10.2 Total Protein 7.4 g/dL 6.0-8.0 Albumin 4.3 g/dL 3.6-4.9 Globulin 3.1 g/dL 2.0-3.5 A/G Ratio 1.4 Ratio 1.0-2.2 Total Bilirubin 0.4 mg/dL 0.1-1.3 Alkaline Phosphatase 117 U/L 24-140 Alt 23 U/L 3-42 Ast 17 U/L 8-42 Keesha Egfr >60 >60 10 Non Keesha Egfr >60 >60 11 Anion Gap 11 mmol/L 5-15 12 Lipid Panel-fcmg 03/27/2018 Cholesterol, Total 276 mg/dL High 100-199 Triglycerides 204 mg/dL High 0-149 HDL Cholesterol 46 mg/dL >39 VLDL Cholesterol Ion 41 mg/dL High 5-40 LDL Cholesterol Calc 189 mg/dL High 0-99 Comment: TNP Laboratory test finding 03/27/2018 Hemoglobin [id number] <pending> TSH 8.450 uIU/mL High 0.450-4.500 CBC/Diff Ambiguous Default 03/27/2018 WBC 5.9 x10E3/uL 3.4-10.8 RBC 4.78 x10E6/uL 3.77-5.28 Hemoglobin 14.7 g/dL 11.1-15.9 Hematocrit 43.7 % 34.0-46.6 MCV 91 fL 79-97 MCH 30.8 pg 26.6-33.0 MCHC 33.6 g/dL 31.5-35.7 RDW 14.4 % 12.3-15.4 Platelets 234 x10E3/uL 150-379 Neutrophils 61 % Not Estab. Lymphs 26 % Not Estab. Monocytes 9 % Not Estab. Eos 3 % Not Estab. Basos 1 % Not Estab. Immature Cells TNP Neutrophils (Absolute) 3.6 x10E3/uL 1.4-7.0 Lymphs (Absolute) 1.5 x10E3/uL 0.7-3.1 Monocytes(Absolute) 0.5 x10E3/uL 0.1-0.9 Eos (Absolute) 0.2 x10E3/uL 0.0-0.4 Baso (Absolute) 0.0 x10E3/uL 0.0-0.2 Immature Granulocytes 0 % Not Estab. Immature Grans (Abs) 0.0 x10E3/uL 0.0-0.1 NRBC TNP Hematology Comments: TNP 13 Metabolic Panel (14), Comprehensive 03/27/2018 Glucose 264 mg/dL High 65- 99 BUN 17 mg/dL 8-27 Creatinine 0.73 mg/dL 0.57-1.00 eGFR If NonAfricn Am 81 mL/min/1.73 >59 eGFR If Africn Am 93 mL/min/1.73 >59 BUN/Creatinine Ratio 23 12-28 Sodium 133 mmol/L Low 134-144 Potassium 5.0 mmol/L 3.5-5.2 Chloride 91 mmol/L Low 96-106 Carbon Dioxide, Total 22 mmol/L 18-29 Calcium 9.8 mg/dL 8.7-10.3 Protein, Total 7.6 g/dL 6.0-8.5 Albumin 4.5 g/dL 3.5-4.8 Globulin, Total 3.1 g/dL 1.5-4.5 A/G Ratio 1.5 1.2-2.2 Bilirubin, Total 0.6 mg/dL 0.0-1.2 Alkaline Phosphatase 168 IU/L High 39-117 Ast (Sgot) 22 IU/L 0-40 Alt (SGPT) 31 IU/L 0-32 Hemoglobin A1c 03/27/2018 Hemoglobin A1c 12.1 % High 4.8-5.6 14 Laboratory test finding 03/27/2018 Thyroid Stimulating <pending> Hormone (TSH) PDF [id number] SEE IMAGE Comprehensive Metabolic (CMP) 04/27/2017 Sodium 139 mmol/L 135-146 15, 16 Potassium 5.5 No visible h <SEE NOTE> mmol/L High 3.5-5.2 15, 17 Chloride# 106 mmol/L 97-110 15, 18 Carbon Dioxide 25 mmol/L 24-34 15 Glucose 111 mg/dL High 70-105 15 BUN 20 mg/dL 6-26 15 Creatinine 0.8 mg/dL 0.5-1.4 15 Calcium 9.8 mg/dL 8.5-10.2 15 Total Protein 6.9 g/dL 6.0-8.0 15 Albumin 4.3 g/dL 3.6-4.9 15 Globulin 2.6 g/dL 2.0-3.5 15 A/G Ratio 1.7 Ratio 1.0-2.2 15 Total Bilirubin 0.7 mg/dL 0.1-1.3 15 Alkaline Phosphatase 102 U/L 24-140 15 Alt 24 U/L 3-42 15 Ast 21 U/L 8-42 15 Keesha Egfr >60 >60 15, 19 Non Keesha Egfr >60 >60 15, 20 Anion Gap 14 mmol/L 7-16 15, 21 Hemoglobin A1c 04/27/2017 Hemoglobin A1c 7.0 % High 4.1-5.9 15 Estimated Average Glucose Calc 154 High 71-140 15 Lipid 04/27/2017 Cholesterol 255 mg/dL High 50-199 15 Triglycerides 190 mg/dL 30-200 15 HDL 39 mg/dL 35-85 15, 22 Chol/ HDL Ratio 6.6 ratio High 3.7-5.6 15 VLDL 38 mg/dL High 2-29 15 LDL (Calc) 178 mg/dL High 20-99 15, 23 Lipid 02/19/2017 Cholesterol 282 mg/dL High 50-199 15 Triglycerides 257 mg/dL High 30-200 15 HDL 46 mg/dL 35-85 15, 24 Chol/ HDL Ratio 6.1 ratio High 3.7-5.6 15 VLDL 51 mg/dL High 2-29 15 LDL (Calc) 185 mg/dL High 20-99 15, 25 Laboratory test finding 02/19/2017 TSH 6.59 uIU/mL High 0.35-4.94 15 Comprehensive Metabolic (CMP) 02/19/2017 Sodium 141 mmol/L 135-146 15, 26 Potassium 4.6 mmol/L 3.5-5.2 15 Chloride# 102 mmol/L 97-110 15, 27 Carbon Dioxide 26 mmol/L 24-34 15 Glucose 131 mg/dL High 70-105 15 BUN 17 mg/dL 6-26 15 Creatinine 0.7 mg/dL 0.5-1.4 15 Calcium 10.0 mg/dL 8.5-10.2 15 Total Protein 7.5 g/dL 6.0-8.0 15 Albumin 4.7 g/dL 3.6-4.9 15 Globulin 2.8 g/dL 2.0-3.5 15 A/G Ratio 1.7 Ratio 1.0-2.2 15 Total Bilirubin 0.7 mg/dL 0.1-1.3 15 Alkaline Phosphatase 106 U/L 24-140 15 Alt 24 U/L 3-42 15 Ast 21 U/L 8-42 15 Keesha Egfr >60 >60 15, 28 Non Keesha Egfr >60 >60 15, 29 Anion Gap 18 mmol/L High 7-16 15, 30 Laboratory test finding 08/21/2016 TSH 5.31 uIU/mL High 0.35-4.94 Lipid 08/21/2016 Cholesterol 266 mg/dL High 50-199 Triglycerides 212 mg/dL High 30-200 HDL 43 mg/dL 35-85 31 Chol/ HDL Ratio 6.2 ratio High 3.7-5.6 VLDL 42 mg/dL High 2-29 LDL (Calc) 181 mg/dL High 20-99 32 Comprehensive Metabolic (CMP) 08/21/2016 Sodium 138 mmol/L 134-142 Potassium 5.5 No visible h <SEE NOTE> mmol/L High 3.5-5.2 33 Chloride 104 mmol/L 97-109 Carbon Dioxide 27 mmol/L 24-34 Glucose 99 mg/dL 70-105 BUN 21 mg/dL 6-26 Creatinine 0.7 mg/dL 0.5-1.4 Calcium 10.1 mg/dL 8.5-10.2 Total Protein 7.4 g/dL 6.0-8.0 Albumin 4.5 g/dL 3.6-4.9 Globulin 2.9 g/dL 2.0-3.5 A/G Ratio 1.6 Ratio 1.0-2.2 Total Bilirubin 0.7 mg/dL 0.1-1.3 Alkaline Phosphatase 106 U/L 24-140 Alt 27 U/L 3-42 Ast 23 U/L 8-42 Anion Gap 13 mmol/L 6-14 Keesha Egfr >60 >60 34 Non Keesha Egfr >60 >60 35 Lipid 02/21/2016 Cholesterol 252 mg/dL High 50-199 Triglycerides 197 mg/dL 30-200 HDL 43 mg/dL 35-85 36 Chol/ HDL Ratio 5.9 ratio High 3.7-5.6 VLDL 39 mg/dL High 2-29 LDL (Calc) 170 mg/dL High 20-99 37 Comprehensive Metabolic (CMP) 02/21/2016 Sodium 137 mmol/L 134-142 Potassium 5.8 No visible h <SEE NOTE> mmol/L High 3.5-5.2 38 Chloride 102 mmol/L 97-109 Carbon Dioxide 29 mmol/L 24-34 Glucose 116 mg/dL High 70-105 BUN 18 mg/dL 6-26 Creatinine 0.7 mg/dL 0.5-1.4 Calcium 9.8 mg/dL 8.5-10.2 Total Protein 7.2 g/dL 6.0-8.0 Albumin 4.3 g/dL 3.6-4.9 Globulin 2.9 g/dL 2.0-3.5 A/G Ratio 1.5 Ratio 1.0-2.2 Total Bilirubin 0.7 mg/dL 0.1-1.3 Alkaline Phosphatase 121 U/L 24-140 Alt 28 U/L 3-42 Ast 22 U/L 8-42 Anion Gap 12 mmol/L 6-14 Keesha Egfr >60 >60 39 Non Keesha Egfr >60 >60 40 Laboratory test finding 02/21/2016 TSH 5.32 uIU/mL High 0.35-4.94 CBC With Auto Diff 02/21/2016 WBC 6.6 K/uL 4.1-11.0 RBC 4.72 M/uL 4.00-5.40 Hemoglobin 14.9 gm/dL 12.0-16.0 Hematocrit 45.3 % 36.0-47.0 MCV 96.0 fL 80.0-97.0 MCH 31.5 pg 27.0-32.0 MCHC 32.8 g/dL 32.0-36.0 RDW 13.7 % 11.5-14.5 PLT Count 247 K/ul 140-400 Neutrophil 68.7 % 35.0-75.0 Lymphocyte 21.9 % 16.0-52.0 Monocyte 6.3 % 2.0-10.0 Eosinophil 2.0 % 0.0-5.0 Basophil 1.1 % 0.0-4.0 Abs Neutrophils 4.5 K/uL 2.1-8.0 Abs Lymphocytes 1.4 K/uL 0.8-5.5 Abs Monocytes 0.4 K/uL 0.1-1.0 Abs Eosinophils 0.1 K/uL 0.0-0.5 Abs Basophils 0.1 K/uL 0.0-0.3 Lipid 08/10/2013 Cholesterol 281 mg/dL High 50-199 41 Triglycerides 391 mg/dL High 30-200 41 HDL 44 mg/dL 35-85 41, 42 Chol/ HDL Ratio 6.4 ratio High 3.7-5.6 41 VLDL 78 mg/dL High 2-29 41 LDL (Calc) 159 mg/dL High 20-99 41, 43 CBC With Auto Diff 08/10/2013 WBC 8.0 K/uL 4.1-11.0 41 RBC 4.64 M/uL 4.00-5.40 41 Hemoglobin 14.7 gm/dL 12.0-16.0 41 Hematocrit 44.1 % 36.0-47.0 41 MCV 94.9 fL 80.0-97.0 41 MCH 31.6 pg 27.0-32.0 41 MCHC 33.2 g/dL 32.0-36.0 41 RDW 13.3 % 11.5-14.5 41 PLT Count 244 K/ul 140-400 41 Neutrophil 72.8 % 35.0-75.0 41 Lymphocyte 17.3 % 16.0-52.0 41 Monocyte 7.4 % 2.0-10.0 41 Eosinophil 1.5 % 0.0-5.0 41 Basophil 1.0 % 0.0-4.0 41 Abs Neutrophils 5.8 K/uL 2.1-8.0 41 Abs Lymphocytes 1.4 K/uL 0.8-5.5 41 Abmon 0.6 K/uL 0.1-1.0 41 Abs Eosinophils 0.1 K/uL 0.0-0.5 41 Abs Basophils 0.1 K/uL 0.0-0.3 41 Lipid 02/16/2013 Cholesterol 264 mg/dL High 50-199 44 Triglycerides 183 mg/dL 30-200 44 HDL 42 mg/dL 35-85 44, 45 Chol/ HDL Ratio 6.3 ratio High 3.7-5.6 44 VLDL 37 mg/dL High 2-29 44 LDL (Calc) 185 mg/dL High 20-129 44, 46 Comprehensive Metabolic (CMP) 02/16/2013 Sodium 137 mmol/L 134-142 44 Potassium 5.4 mmol/L High 3.5-5.2 44, 47 Chloride 104 mmol/L 97-109 44 Carbon Dioxide 26 mmol/L 24-34 44 Glucose 106 mg/dL High 70-105 44 BUN 24 mg/dL 6-26 44 Creatinine 0.7 mg/dL 0.5-1.4 44 Calcium 10.0 mg/dL 8.5-10.2 44 Total Protein 7.4 g/dL 6.0-8.0 44 Albumin 4.6 g/dL 3.6-4.9 44 Globulin 2.8 g/dL 2.0-3.5 44 A/G Ratio 1.6 Ratio 1.0-2.2 44 Total Bilirubin 0.7 mg/dL 0.1-1.3 44 Alkaline Phosphatase 96 U/L 24-140 44 Alt 30 U/L 3-42 44 Ast 23 U/L 8-42 44 Anion Gap 12 mmol/L 6-14 44 Keesha Egfr >60 >60 44, 48 Non Keesha Egfr >60 >60 44, 49 Lipid 06/30/2012 Cholesterol 240 mg/dL High 50-199 50 Triglycerides 151 mg/dL 30-200 50 HDL 43 mg/dL 35-85 50, 51 Chol/ HDL Ratio 5.6 ratio 3.7-5.6 50 VLDL 30 mg/dL High 2-29 50 LDL (Calc) 167 mg/dL High 20-129 50, 52 Lipid Treatment 05/11/2012 Cholesterol 216 mg/dL High 50-199 53 Triglycerides 233 mg/dL High 30-200 53 HDL 34 mg/dL Low 35-85 53, 54 Chol/ HDL Ratio 6.4 ratio High 3.7-5.6 53 VLDL 47 mg/dL High 2-29 53 LDL (Calc) 135 mg/dL High 20-129 53, 55 Alt 27 U/L 3-42 53 Ast 23 U/L 8- 53 Laboratory test finding 11/27/2011 H. Pylori Stool Ag SEE NOTE 56, 57 Laboratory test finding 11/25/2011 Vit D,25 Hydroxy 28 ng/mL Low 31-100 56 Comprehensive Metabolic 11/25/2011 Sodium 138 mmol/L 135-144 56 (CMP) Potassium 5.6 No visible h <SEE NOTE> mmol/L High 3.5-5.1 56, 58 Chloride 105 mmol/L 97-107 56 Carbon Dioxide 25 mmol/L 23-33 56 Glucose 110 mg/dL High 70-105 56 BUN 23 mg/dL 7-25 56 Creatinine 0.7 mg/dL 0.6-1.2 56 Calcium 9.9 mg/dL 8.6-10.3 56 BUN/CR 31 ratio High 12-20 56 Total Protein 7.7 g/dL 6.0-8.5 56 Albumin 4.5 g/dL 3.5-5.7 56 Globulin 3.2 g/dL 2.0-3.5 56 A/G Ratio 1.4 Ratio 1.0-2.2 56 Total Bilirubin 0.7 mg/dL 0.3-1.3 56 Alkaline Phosphatase 82 U/L 34-104 56 Alt 30 U/L 7-52 56 Ast 26 U/L 13-39 56 Anion Gap 14 mmol/L 8-16 56 Non Keesha Egfr >60 >60 56, 59 Keesha Egfr >60 >60 56, 60 Lipid 11/25/2011 Cholesterol 248 mg/dL High 50-199 56 Triglycerides 184 mg/dL High 10-150 56 HDL 48 mg/dL 23-92 56, 61 Chol/ HDL Ratio 5.2 ratio 3.7-5.6 56 VLDL 37 mg/dL High 2-29 56 LDL (Calc) 163 mg/dL High 20-129 56, 62 Laboratory test finding 11/25/2011 TSH 5.11 uIU/mL 0.34-5.60 56 CBC With Auto Diff 11/25/2011 WBC 6.1 K/uL 4.1-11.0 56 RBC 4.64 M/uL 4.00-5.40 56 Hemoglobin 15.6 gm/dL 12.0-16.0 56 Hematocrit 44.8 % 36.0-47.0 56 MCV 96.4 fL 80.0-97.0 56 MCH 33.6 pg High 27.0-32.0 56 MCHC 34.8 g/dL 32.0-36.0 56 RDW 13.1 % 11.5-14.5 56 PLT Count 235 K/ul 140-400 56 Neutrophil 70.5 % 35.0-75.0 56 Lymphocyte 21.6 % 16.0-52.0 56 Monocyte 6.5 % 2.0-10.0 56 Eosinophil 1.0 % 0.0-5.0 56 Basophil 0.4 % 0.0-4.0 56 Abs Neutrophils 4.3 K/uL 2.1-8.0 56 Abs Lymphocytes 1.3 K/uL 0.8-5.5 56 Abs Monocytes 0.4 K/uL 0.1-1.0 56 Abs Eosinophils 0.1 K/uL 0.0-0.5 56 Abs Basophils 0.0 K/uL 0.0-0.3 56 Laboratory test finding 10/31/2010 [facility] Pap - [place] (SEE NOTE) 56, 63 Laboratory test finding 10/31/2010 Urine Culture >100,000 CFU/ML <SEE 64 NOTE> Preliminary Ur. Culture Result GRAM NEGATIVE RO <SEE NOTE> 65 Laboratory test finding 10/31/2010 TSH 3.78 uIU/ml 0.34-5.60 66 CBC With Auto Diff 10/31/2010 WBC 5.0 K/ul 4.0-10.9 66 RBC 4.38 M/ul 4.20-5.40 66 Hemoglobin 14.6 GM/dl 12.5-16.0 66 Hematocrit 42.1 % 36.0-47.0 66 MCV 96.2 FL 80.0-97.0 66 MCH 33.4 pg High 27.0-31.0 66 MCHC 34.7 g/dL 32.0-36.0 66 RDW 13.4 % 11.5-14.5 66 Platelet Count 229 K/ul 140-440 66 Neutrophils 68.3 % 50-70 66 Lymphocytes 23.6 % 20-44 66 Monocytes 6.3 % 2-9 66 Eosinophil 1.3 % 0-4 66 Basophil 0.5 % 0-2 66 Absolute Neutrophils 3.4 K/ul 2.05-7.63 66 Absolute Lymphocytes 1.2 K/ul 0.8-4.8 66 Absolute Monocytes 0.3 K/ul 0.1-1.0 66 Absolute Eosinophils 0.1 K/ul 0.1-0.5 66 Absolute Basophils 0.0 K/ul 0.0-0.3 66 Hematology Comment (Comm2) N/A 66 Gram Negative Sensitivity 10/31/2010 Ampicillin (Am) SENSITIVE Ampicillin/Sulbactam (Jose M) SENSITIVE Cefazolin (CZ) SENSITIVE Ceftriaxone (Geomagnetist SENSITIVE Ciprofloxacin (Cip) SENSITIVE Nitrofurantoin (FT) RESISTANT Trimethoprim/Sulfamethoxazole (SXT) SENSITIVE Urinalysis With Microscopic-RL 10/31/2010 Color -LA YELLOW 67 Appearance -LA CLOUDY 67 Specific [place] -LA 1.023 1.003-1.030 67 PH Urine -LA 6.5 5.0-7.5 67 Leukocyte Esterase -LA 3+ (Neg) 67 Nitrite -LA NEGATIVE (Neg) 67 Protein Urine-LA NEGATIVE (Neg) 67 Glucose Urine -LA NEGATIVE (Neg) 67 Ketone Urine -LA NEGATIVE (Neg) 67 Urobilinogen -LA 0.2 mg/dL 0-1.0 67 Blood/HGB Urine-RL NEGATIVE (Neg) 67 Urine WBC -LA * 10-25 /HPF (0-5) 67 Urine RBC -LA NONE SEEN /HPF (0-2) 67 Bacteria -LA 2+ /HPF 67 Fine Gran Cast N/A /LPF 67 WBC Cast N/A /LPF 67 Bilirubin Urine -LA NEGATIVE (Neg) 67 Epithelial Cells -LA 1+ /HPF 67 Mucus -LA 1+ /HPF 67, 68 Laboratory test finding 10/31/2010 Vitamin D, 25 Hydroxy 22 ng/mL Low 31- 100 69 CMP 10/31/2010 Sodium 142 mmol/L 135-144 69 Potassium 5.6 mmol/L High 3.6-5.2 69, 70 Chloride 105 mmol/L 97-110 69 Carbon Dioxide 28 mmol/L 23-32 69 Glucose 104 mg/dL 70-105 69 BUN 19 mg/dL 6-22 69 Creatinine 0.7 mg/dL 0.5-1.3 69 BUN/CR 27 Ratio 69 Calcium 10.1 mg/dL 8.6-10.2 69 Total Protein 6.9 g/dL 5.8-7.8 69 Albumin 4.3 g/dL 3.5-4.8 69 Globulin 2.6 g/dL 2.0-3.5 69 A/G Ratio 1.7 Ratio 1.0-2.2 69 Total Bilirubin 0.8 mg/dL 0.3-1.2 69 Alkaline Phosphatase 67 U/L 24-140 69 Alt 24 U/L 5-45 69 Ast 26 U/L 12-40 69 Anion Gap 15 mmol/L 8-16 69 GFR Calculation > 60 mL/min 60-175 69, 71 GFR For > 60 mL/min 60-175 69, 72 Lipid Panel 10/31/2010 Cholesterol 244 mg/dL High 50-199 69 Triglycerides 163 mg/dL High 10-150 69 HDL 45 mg/dL 35-85 69, 73 Chol/HDL Ratio 5.4 Ratio 3.7-5.6 69, 74 VLDL 33 mg/dL High 2-29 69 LDL (Calc) 166 mg/dL High 20-129 69, 75 Laboratory test finding 10/11/2009 Vitamin D, 25 Hydroxy 24 ng/mL Low 31- 100 76 Lipid TX Panel 10/11/2009 Ast 26 U/L 12-40 76 Alt 31 U/L 5-45 76 Cholesterol 262 mg/dL High 50-199 76 Triglycerides 163 mg/dL High 10-150 76 HDL 43 mg/dL 35-85 76, 77 LDL (Calc) 186 mg/dL High 20-129 76, 78 Chol/HDL Ratio 6.1 Ratio High 3.7-5.6 76, 79 VLDL 33 mg/dL High 2-29 76 Basic (BMP) 10/11/2009 Sodium 142 mmol/L 135-144 76 Potassium 4.6 mmol/L 3.6-5.2 76 Chloride 108 mmol/L 97-110 76 Carbon Dioxide 26 mmol/L 23-32 76 Glucose 97 mg/dL 70-105 76 BUN 18 mg/dL 6-22 76 Creatinine 0.6 mg/dL 0.5-1.3 76 BUN/CR 30 Ratio High 12.0-20.0 76 Anion Gap 13 mmol/L 8-16 76 Calcium 10.1 mg/dL 8.6-10.2 76, 80 GFR Calculation > 60 mL/min 60-175 76, 81 GFR For > 60 mL/min 60-175 76, 82 CBC With Auto Diff 10/11/2009 WBC 5.3 K/ul 4.0-10.9 76 RBC 4.52 M/ul 4.20-5.40 76 Hemoglobin 14.4 GM/dl 12.5-16.0 76 Hematocrit 43.4 % 36.0-47.0 76 MCV 96.0 FL 80.0-97.0 76 MCH 31.8 pg High 27.0-31.0 76 MCHC 33.1 g/dL 32.0-36.0 76 RDW 13.4 % 11.5-14.5 76 Platelet Count 244 K/ul 140-440 76 Neutrophils 65.7 % 50-70 76 Lymphocytes 24.0 % 20-44 76 Monocytes 6.7 % 2-9 76 Eosinophil 3.3 % 0-4 76 Basophil 0.3 % 0-2 76 Absolute Neutrophils 3.5 K/ul 2.05-7.63 76 Absolute Lymphocytes 1.3 K/ul 0.8-4.8 76 Absolute Monocytes 0.4 K/ul 0.1-1.0 76 Absolute Eosinophils 0.2 K/ul 0.1-0.5 76 Absolute Basophils 0.0 K/ul 0.0-0.3 76 Hematology Comment (Comm2) N/A 76 Laboratory test finding 10/11/2009 TSH 3.60 uIU/ml 0.34-5.60 76 Lipid TX Panel 02/21/2008 Ast 35 U/L 12-40 83 Alt 38 U/L 4-45 83 Cholesterol 287 mg/dL High 50-199 83 Triglycerides 177 mg/dL High 10-150 83 HDL 45 mg/dL 35-85 83 LDL (Calc) 207 mg/dL High 20-129 83 Chol/HDL Ratio 6.4 Ratio 83 VLDL 35 mg/dL 83 Laboratory test finding 02/21/2008 Vitamin D, 25 Hydroxy 27 ng/mL 19-58 83 Laboratory test finding 02/21/2008 TSH 5.50 uIU/ml 0.34-5.60 83 Basic (BMP) 02/21/2008 Sodium 138 mmol/L 135-144 83 Potassium 4.4 mmol/L 3.6-5.2 83 Chloride 102 mmol/L 97-110 83 Carbon Dioxide 29 mmol/L 23-33 83 Glucose 87 mg/dL 70-105 83 BUN 15 mg/dL 6-22 83 Creatinine 0.7 mg/dL 0.5-1.3 83 BUN/CR 21 Ratio High 12.0-20.0 83 Anion Gap 11 mmol/L 8-16 83 Calcium 9.6 mg/dL 8.6-10.2 83 GFR Calculation > 60 mL/min 83, 84 GFR For > 60 mL/min 83, 85 CBC With Auto Diff 02/21/2008 WBC 5.4 K/ul 4.0-10.9 83 RBC 4.58 M/ul 4.20-5.40 83 Hemoglobin 14.8 GM/dl 12.5-16.0 83 Hematocrit 41.8 % 36.0-47.0 83 MCV 91.3 FL 80.0-97.0 83 MCH 32.4 pg High 27.0-31.0 83 MCHC 35.5 g/dL 32.0-36.0 83 RDW 12.7 % 11.5-14.5 83 Platelet Count 273 K/ul 140-440 83 Neutrophils 65.2 % 50-70 83 Lymphocytes 25.6 % 20-44 83 Monocytes 6.1 % 2-9 83 Eosinophil 2.6 % 0-4 83 Basophil 0.5 % 0-2 83 Absolute Neutrophils 3.6 K/ul 2.05-7.63 83 Absolute Lymphocytes 1.4 K/ul 0.8-4.8 83 Absolute Monocytes 0.3 K/ul 0.1-1.0 83 Absolute Eosinophils 0.1 K/ul 0.1-0.5 83 Absolute Basophils 0.0 K/ul Low 0.1-0.3 83 Laboratory test 08/20/2006 [facility], Thinprep - SEE REFERENCE LA 86 finding LA <SEE NOTE> Lipid Panel 08/20/2006 Cholesterol 257 mg/dL High 50-199 87 Triglycerides 97 mg/dL 10-150 87 HDL 53 mg/dL 35-85 87 Chol/HDL Ratio 4.9 Ratio 87 VLDL 19 mg/dL 87 LDL (Calc) 185 mg/dL High 20-129 87 Basic (BMP) 08/20/2006 Sodium 141 mmol/L 135-144 87 Potassium 4.6 mmol/L 3.6-5.2 87 Chloride 106 mmol/L 97-110 87 Carbon Dioxide 27 mmol/L 23-33 87 Glucose 80 mg/dL 70-105 87 BUN 18 mg/dL 6-22 87 Creatinine 0.8 mg/dL 0.5-1.3 87 BUN/CR 23 Ratio High 12.0-20.0 87 Anion Gap 13 mmol/L 8-16 87 Calcium 9.6 mg/dL 8.6-10.2 87 GFR White Male 103 87 GFR White Female 76 87 GFR Black Male 125 87 GFR Black Female 92 87 GFR Guidelines 0 87, 88 Laboratory test finding 08/20/2006 TSH 3.44 uIU/ml 0.50-6.00 87 CBC With Auto Diff 08/20/2006 WBC 6.2 K/ul 4.0-10.9 87 RBC 4.40 M/ul 4.20-5.40 87 Hemoglobin 14.1 GM/dl 12.5-16.0 87 Hematocrit 39.9 % 36.0-47.0 87 MCV 90.9 FL 80.0-97.0 87 MCH 32.0 pg High 27.0-31.0 87 MCHC 35.2 g/dL 32.0-36.0 87 RDW 12.2 % 11.5-14.5 87 Platelet Count 257 K/ul 140-440 87 Neutrophils 71.6 % High 50-70 87 Lymphocytes 19.9 % Low 20-44 87 Monocytes 6.1 % 2-9 87 Eosinophil 1.8 % 0-4 87 Basophil 0.6 % 0-2 87 Absolute Neutrophils 4.5 K/ul 2.05-7.63 87 Absolute Lymphocytes 1.2 K/ul 0.8-4.8 87 Absolute Monocytes 0.4 K/ul 0.1-1.0 87 Absolute Eosinophils 0.1 K/ul 0.1-0.5 87 Absolute Basophils 0.0 K/ul Low 0.1-0.3 87 1 Updated reference range on new analyzer 2 Updated reference range on new analyzer 3 Concerning GFR Guidelines for Americans: Normal function or mild renal disease, if clinically at risk: >/=60 mL/min Moderately decreased: 30-59 Severely decreased: 15-29 Renal failure: <15 4 Concerning GFR Guidelines: Normal function or mild renal disease, if clinically at risk: >/=60 mL/min Moderately decreased: 30-59 Severely decreased: 15-29 Renal failure: <15 Glomerular Filtration Rate (GFR) is estimated based on the MDRD equation, which assumes a steady state for creatinine as recommended by the National Kidney Disease Education Program in conjunction with the National Institutes of Health and the National Kidney Foundation. Clinical conditions in which it may be necessary to measure GFR by using clearance methods include extremes of age and body size, severe malnutrition or obesity, diseases of skeletal muscle, paraplegia or quadriplegia, vegetarian diet, rapidly changing kidney function, and calculation of the dose of potentially toxic drugs that are excreted by the kidneys. 5 Updated Reference Range 6 ALREADY TREATED W NITORFURANTIN 7 Microbiology results SOURCE Clean Catch Midstream COLONY COUNT >100,000 CFU/ML PRELIMINARY RESULT Gram positive cocci. ID & Sensitivity to Follow. 04/22/2018 2:38 PM FINAL RESULT Enterococcus faecalis (Isolate 1) Sensitivity Analysis Isolate 1 --------- AMPICILLIN <=2 S CIPROFLOXACIN <=1 S GENTAMYCIN HIGH LEVEL (SYN <=500 S LEVOFLOXACIN <=1 S LINEZOLID 2 S NITROFURANTOIN <=32 S PENICILLIN 2 S TETRACYCLINE >8 R VANCOMYCIN 2 S S=Sensitive;I=Indeterminate;R=Resistant 8 Updated reference range on new analyzer 9 Updated reference range on new analyzer 10 Concerning GFR Guidelines for Americans: Normal function or mild renal disease, if clinically at risk: >/=60 mL/min Moderately decreased: 30-59 Severely decreased: 15-29 Renal failure: <15 11 Concerning GFR Guidelines: Normal function or mild renal disease, if clinically at risk: >/=60 mL/min Moderately decreased: 30-59 Severely decreased: 15-29 Renal failure: <15 Glomerular Filtration Rate (GFR) is estimated based on the MDRD equation, which assumes a steady state for creatinine as recommended by the National Kidney Disease Education Program in conjunction with the National Institutes of Health and the National Kidney Foundation. Clinical conditions in which it may be necessary to measure GFR by using clearance methods include extremes of age and body size, severe malnutrition or obesity, diseases of skeletal muscle, paraplegia or quadriplegia, vegetarian diet, rapidly changing kidney function, and calculation of the dose of potentially toxic drugs that are excreted by the kidneys. 12 Updated Reference Range 13 A hand-written panel/profile was received from your office. In accordance with the [employer] Ambiguous Test Code Policy dated May 2003, we have assigned CBC with Differential/Platelet, Test Code #554936 to this request. If this is not the testing you wished to receive on this specimen, please contact the [employer] Client Inquiry/ Technical Services Department to clarify the test order. We appreciate your business. 14 Pre-diabetes: 5.7 - 6.4 Diabetes: >6.4 Glycemic control for adults with diabetes: <7.0 15 This sample is drawn by:NB. 16 Updated reference range on new analyzer 17 5.5 No visible hemolysis. 18 Updated reference range on new analyzer 19 Concerning GFR Guidelines for Americans: Normal function or mild renal disease, if clinically at risk: >/=60 mL/min Moderately decreased: 30-59 Severely decreased: 15-29 Renal failure: <15 20 Concerning GFR Guidelines: Normal function or mild renal disease, if clinically at risk: >/=60 mL/min Moderately decreased: 30-59 Severely decreased: 15-29 Renal failure: <15 Glomerular Filtration Rate (GFR) is estimated based on the MDRD equation, which assumes a steady state for creatinine as recommended by the National Kidney Disease Education Program in conjunction with the National Institutes of Health and the National Kidney Foundation. Clinical conditions in which it may be necessary to measure GFR by using clearance methods include extremes of age and body size, severe malnutrition or obesity, diseases of skeletal muscle, paraplegia or quadriplegia, vegetarian diet, rapidly changing kidney function, and calculation of the dose of potentially toxic drugs that are excreted by the kidneys. 21 Updated reference range on new analyzer 22 Per NCEP ATP III Guidelines: Results lower than 40 mg/dL are suggestive of increased risk for coronary artery disease. Results > or=to 60 mg/dL are considered a negative risk factor. 23 Per NCEP ATP III Guidelines: Normal Population <130 Patients with medical conditions: CHD/DM Optimal: <100 Borderline high: 130-159 High: 160-189 Very high: >189 24 Per NCEP ATP III Guidelines: Results lower than 40 mg/dL are suggestive of increased risk for coronary artery disease. Results > or=to 60 mg/dL are considered a negative risk factor. 25 Per NCEP ATP III Guidelines: Normal Population <130 Patients with medical conditions: CHD/DM Optimal: <100 Borderline high: 130-159 High: 160-189 Very high: >189 26 Updated reference range on new analyzer 27 Updated reference range on new analyzer 28 Concerning GFR Guidelines for Americans: Normal function or mild renal disease, if clinically at risk: >/=60 mL/min Moderately decreased: 30-59 Severely decreased: 15-29 Renal failure: <15 29 Concerning GFR Guidelines: Normal function or mild renal disease, if clinically at risk: >/=60 mL/min Moderately decreased: 30-59 Severely decreased: 15-29 Renal failure: <15 Glomerular Filtration Rate (GFR) is estimated based on the MDRD equation, which assumes a steady state for creatinine as recommended by the National Kidney Disease Education Program in conjunction with the National Institutes of Health and the National Kidney Foundation. Clinical conditions in which it may be necessary to measure GFR by using clearance methods include extremes of age and body size, severe malnutrition or obesity, diseases of skeletal muscle, paraplegia or quadriplegia, vegetarian diet, rapidly changing kidney function, and calculation of the dose of potentially toxic drugs that are excreted by the kidneys. 30 Updated reference range on new analyzer 31 Per NCEP ATP III Guidelines: Results lower than 40 mg/dL are suggestive of increased risk for coronary artery disease. Results > or=to 60 mg/dL are considered a negative risk factor. 32 Per NCEP ATP III Guidelines: Normal Population <130 Patients with medical conditions: CHD/DM Optimal: <100 Borderline high: 130-159 High: 160-189 Very high: >189 33 5.5 No visible hemolysis. 34 Concerning GFR Guidelines for Americans: Normal function or mild renal disease, if clinically at risk: >/=60 mL/min Moderately decreased: 30-59 Severely decreased: 15-29 Renal failure: <15 35 Concerning GFR Guidelines: Normal function or mild renal disease, if clinically at risk: >/=60 mL/min Moderately decreased: 30-59 Severely decreased: 15-29 Renal failure: <15 Glomerular Filtration Rate (GFR) is estimated based on the MDRD equation, which assumes a steady state for creatinine as recommended by the National Kidney Disease Education Program in conjunction with the National Institutes of Health and the National Kidney Foundation. Clinical conditions in which it may be necessary to measure GFR by using clearance methods include extremes of age and body size, severe malnutrition or obesity, diseases of skeletal muscle, paraplegia or quadriplegia, vegetarian diet, rapidly changing kidney function, and calculation of the dose of potentially toxic drugs that are excreted by the kidneys. 36 Per NCEP ATP III Guidelines: Results lower than 40 mg/dL are suggestive of increased risk for coronary artery disease. Results > or=to 60 mg/dL are considered a negative risk factor. 37 Per NCEP ATP III Guidelines: Normal Population <130 Patients with medical conditions: CHD/DM Optimal: <100 Borderline high: 130-159 High: 160-189 Very high: >189 38 5.8 No visible hemolysis. 39 Concerning GFR Guidelines for Americans: Normal function or mild renal disease, if clinically at risk: >/=60 mL/min Moderately decreased: 30-59 Severely decreased: 15-29 Renal failure: <15 40 Concerning GFR Guidelines: Normal function or mild renal disease, if clinically at risk: >/=60 mL/min Moderately decreased: 30-59 Severely decreased: 15-29 Renal failure: <15 Glomerular Filtration Rate (GFR) is estimated based on the MDRD equation, which assumes a steady state for creatinine as recommended by the National Kidney Disease Education Program in conjunction with the National Institutes of Health and the National Kidney Foundation. Clinical conditions in which it may be necessary to measure GFR by using clearance methods include extremes of age and body size, severe malnutrition or obesity, diseases of skeletal muscle, paraplegia or quadriplegia, vegetarian diet, rapidly changing kidney function, and calculation of the dose of potentially toxic drugs that are excreted by the kidneys. 41 This sample is drawn by:MM 42 Per NCEP ATP III Guidelines: Results lower than 40 mg/dL are suggestive of increased risk for coronary artery disease. Results > or=to 60 mg/dL are considered a negative risk factor. 43 Per NCEP ATP III Guidelines: Normal Population <130 Patients with medical conditions: CHD/DM Optimal: <100 Borderline high: 130-159 High: 160-189 Very high: >189 44 This sample is drawn by:JS 45 Per NCEP ATP III Guidelines: Results lower than 40 mg/dL are suggestive of increased risk for coronary artery disease. Results > or=to 60 mg/dL are considered a negative risk factor. 46 Per NCEP ATP III Guidelines: Optimal: <100 Near optimal: 100-129 Borderline high: 130-159 High: 160-189 Very high: >189 47 No visible hemolysis.,Testing performed on an aliquot tube. 48 Concerning GFR Guidelines for Americans: Normal function or mild renal disease, if clinically at risk: >/=60 mL/min Moderately decreased: 30-59 Severely decreased: 15-29 Renal failure: <15 49 Concerning GFR Guidelines: Normal function or mild renal disease, if clinically at risk: >/=60 mL/min Moderately decreased: 30-59 Severely decreased: 15-29 Renal failure: <15 Glomerular Filtration Rate (GFR) is estimated based on the MDRD equation, which assumes a steady state for creatinine as recommended by the National Kidney Disease Education Program in conjunction with the National Institutes of Health and the National Kidney Foundation. Clinical conditions in which it may be necessary to measure GFR by using clearance methods include extremes of age and body size, severe malnutrition or obesity, diseases of skeletal muscle, paraplegia or quadriplegia, vegetarian diet, rapidly changing kidney function, and calculation of the dose of potentially toxic drugs that are excreted by the kidneys. 50 This sample is drawn by:CATIE 51 Per NCEP ATP III Guidelines: Results lower than 40 mg/dL are suggestive of increased risk for coronary artery disease. Results > or=to 60 mg/dL are considered a negative risk factor. 52 Per NCEP ATP III Guidelines: Optimal: <100 Near optimal: 100-129 Borderline high: 130-159 High: 160-189 Very high: >189 53 This sample is drawn by:NB. 54 Per NCEP ATP III Guidelines: Results lower than 40 mg/dL are suggestive of increased risk for coronary artery disease. Results > or=to 60 mg/dL are considered a negative risk factor. 55 Per NCEP ATP III Guidelines: Optimal: <100 Near optimal: 100-129 Borderline high: 130-159 High: 160-189 Very high: >189 56 This sample is drawn by:MM 57 SPECIMEN DESCRIPTION STOOL RESULT NEGATIVE FOR H. PYLORI ANTIGEN BY EIA REPORT STATUS FINAL 11/28/2011 Unless otherwise specified, testing performed by [facility] [address] [place] [address] 58 5.6 No visible hemolysis. 59 Concerning GFR Guidelines: Normal function or mild renal disease, if clinically at risk: >/=60 mL/min Moderately decreased: 30-59 Severely decreased: 15-29 Renal failure: <15 Glomerular Filtration Rate (GFR) is estimated based on the MDRD equation, which assumes a steady state for creatinine as recommended by the National Kidney Disease Education Program in conjunction with the National Institutes of Health and the National Kidney Foundation. Clinical conditions in which it may be necessary to measure GFR by using clearance methods include extremes of age and body size, severe malnutrition or obesity, diseases of skeletal muscle, paraplegia or quadriplegia, vegetarian diet, rapidly changing kidney function, and calculation of the dose of potentially toxic drugs that are excreted by the kidneys. 60 Concerning GFR Guidelines for Americans: Normal function or mild renal disease, if clinically at risk: >/=60 mL/min Moderately decreased: 30-59 Severely decreased: 15-29 Renal failure: <15 61 Per NCEP ATP III Guidelines: Results lower than 40 mg/dL are suggestive of increased risk for coronary artery disease. Results > or=to 60 mg/dL are considered a negative risk factor. 62 Per NCEP ATP III Guidelines: Optimal: <100 Near optimal: 100-129 Borderline high: 130-159 High: 160-189 Very high: >189 63 LABORATORY [employer] [facility] [place] [employer] [facility]. [address] [place] [address] GYNECOLOGIC CYTOLOGY REPORT Accession Number: [id number] Source of Specimen(s): A: [facility] Vaginal/ Cervical/ Endocervical Pap Smear - One Vial Clinical Diagnosis and History: Date of Last Menstrual Period: None Provided Specimen Adequacy Satisfactory for evaluation Scant/no endocervical component General Categorization Negative for intraepithelial lesion or malignancy Interpretation NEGATIVE FOR INTRAEPITHELIAL LESION OR MALIGNANCY Reported: 11/05/2010 Electronically Signed Out By Gaby SAAVEDRA(ASCP) [facility] dol Unless otherwise specified, testing performed by [employer] [facility] [place] [address] 64 >100,000 CFU/ML PROTEUS MIRABILIS 65 GRAM NEGATIVE GUERO ISOLATED, ID & SENSITIVITY TO FOLLOW 66 FASTING This sample is drawn by:CATIE 67 This sample is drawn by:CATIE 68 Unless otherwise specified, testing performed by [employer] [facility] [place] [address] 69 FASTING This sample is drawn by:CATIE 70 CONFIRMED, NO HEMOLYSIS The difference between the most recent result of 4.6 and the current result of 5.6 exceeds the absolute delta value of 0.5 as defined for this test. 71 Concerning GFR GUIDELINES: Normal Function or Mild Renal Disease, if clinically at risk: >/=60mL/min Moderately decreased: 30-59 Severely decreased: 15-29 Renal Failure: <15 Glomerular Filtration Rate (GFR) is estimated based on the MDRD equation, which assumes a steady state for creatinine as recommended by the National Kidney Disease Education Program in conjunction with the National Institutes of Health and the National Kidney Foundation. Clinical conditions in which it may be necessary to measure GFR by using clearance methods include extremes of age and body size, severe malnutrition or obesity, diseases of skeletal muscle, paraplegia or quadriplegia, vegetarian diet, rapidly changing kidney function, and calculation of the dose of potentially toxic drugs that are excreted by the kidneys. 72 Concerning GFR GUIDELINES: Normal Function or Mild Renal Disease, if clinically at risk: >/=60mL/min Moderately decreased: 30-59 Severely decreased: 15-29 Renal Failure: <15 73 PER NCEP ATP III GUIDELINES: RESULTS LOWER THAN 40 MG/DL ARE SUGGESTIVE OF INCREASED RISK FOR CORONARY ARTERY DISEASE. RESULTS > OR=TO 60 MG/DL ARE CONSIDERED A NEGATIVE RISK FACTOR. 74 INTERPRETATION OF CHOL-HDL RATIO CHD RISK FEMALE MALE VERY HIGH >8.3 >14.3 HIGH 5.6 - 8.3 6.7 - 14.3 AVERAGE 3.7 - 5.6 4.0 - 6.7 BELOW AVERAGE 2.5 - 3.7 2.7 - 4.0 PROTECTED <2.5 <2.7 75 PER NCEP ATP III GUIDELINES: OPTIMAL: <100 NEAR OPTIMAL: 100 - 129 BORDERLINE HIGH: 130 - 159 HIGH: 160 - 189 VERY HIGH: >189 76 FASTING This sample is drawn by: DB 77 PER NCEP ATP III GUIDELINES: RESULTS LOWER THAN 40 MG/DL ARE SUGGESTIVE OF INCREASED RISK FOR CORONARY ARTERY DISEASE. RESULTS > OR=TO 60 MG/DL ARE CONSIDERED A NEGATIVE RISK FACTOR. 78 PER NCEP ATP III GUIDELINES: OPTIMAL: <100 NEAR OPTIMAL: 100 - 129 BORDERLINE HIGH: 130 - 159 HIGH: 160 - 189 VERY HIGH: >189 79 INTERPRETATION OF CHOL-HDL RATIO CHD RISK FEMALE MALE VERY HIGH >8.3 >14.3 HIGH 5.6 - 8.3 6.7 - 14.3 AVERAGE 3.7 - 5.6 4.0 - 6.7 BELOW AVERAGE 2.5 - 3.7 2.7 - 4.0 PROTECTED <2.5 <2.7 80 The difference between the most recent result of 9.6 and the current result of 10.1 exceeds the absolute delta value of 0.3 as defined for this test. 81 Concerning GFR GUIDELINES: Normal Function or Mild Renal Disease, if clinically at risk: >/=60mL/min Moderately decreased: 30-59 Severely decreased: 15-29 Renal Failure: <15 Glomerular Filtration Rate (GFR) is estimated based on the MDRD equation, which assumes a steady state for creatinine as recommended by the National Kidney Disease Education Program in conjunction with the National Institutes of Health and the National Kidney Foundation. Clinical conditions in which it may be necessary to measure GFR by using clearance methods include extremes of age and body size, severe malnutrition or obesity, diseases of skeletal muscle, paraplegia or quadriplegia, vegetarian diet, rapidly changing kidney function, and calculation of the dose of potentially toxic drugs that are excreted by the kidneys. 82 Concerning GFR GUIDELINES: Normal Function or Mild Renal Disease, if clinically at risk: >/=60mL/min Moderately decreased: 30-59 Severely decreased: 15-29 Renal Failure: <15 83 FASTING 84 Concerning GFR GUIDELINES: Normal Function or Mild Renal Disease, if clinically at risk: >/=60mL/min Moderately decreased: 30-59 Severely decreased: 15-29 Renal Failure: <15 Glomerular Filtration Rate (GFR) is estimated based on the MDRD equation, which assumes a steady state for creatinine as recommended by the National Kidney Disease Education Program in conjunction with the National Institutes of Health and the [employer]. Clinical conditions in which it may be necessary to measure GFR by using clearance methods include extremes of age and body size, severe malnutrition or obesity, diseases of skeletal muscle, paraplegia or quadriplegia, vegetarian diet, rapidly changing kidney function, and calculation of the dose of potentially toxic drugs that are excreted by the kidneys. 85 Concerning GFR GUIDELINES: Normal Function or Mild Renal Disease, if clinically at risk: >/=60mL/min Moderately decreased: 30-59 Severely decreased: 15-29 Renal Failure: <15 86 SEE REFERENCE LAB REPORT [id number] Normal Function or Mild Renal Disease, if clinically at risk: >/=60 mL/min Moderately decreased: 30-59 Severely decreased: 15-29 Renal Failure: <15 Glomerular Filtration Rate (GFR) is estimated based on the MDRD equation, which assumes a steady state for creatinine as recommended by the National Kidney Disease Education Program in conjunction with the National Institutes of Health and the National Kid[employer] Foundation. Clinical conditions in which it may be necessary to measure GFR by using clearance methods include extremes of age and body size, severe malnutrition or obesity, diseases of skeletal muscle, paraplegia or quadriplegia, vegetarian diet, rapidly changing kidney function, and calculation of the dose of potentially toxic drugs that are excreted by the kidneys. Procedures Date CPT Code Description Status 05/21/2018 39495 Electrocardiogram Complete Completed 02/28/2016 70271 Electrocardiogram Complete Completed 02/01/2015 59676 Admin Of Inj (Therapeutic Phrophylactic Or Diagnostic Completed Subq Inj 11/25/2011 61858 Electrocardiogram Complete Completed 08/07/2011 Colonoscopy Completed 10/31/2010 43656 Electrocardiogram Complete Completed 05/20/2010 Mammogram Completed 05/09/2010 Bone Mineral Density Test Completed 10/11/2009 86875 Electrocardiogram Complete Completed 02/21/2008 75886 Electrocardiogram Complete Completed 01/04/2001 74320 Electrocardiogram Complete Completed Encounters Type Date Location Provider CPT E/M Dx Office Visit 04/21/2018 11:40a Lyndsey Ross RN [facility] 93664 R31.9 E11.65 I10 E78.2 E03.9 Office Visit 04/01/2018 1:20p Lyndsey Ross RN [facility] 47541 E11.65 I10 E78.2 Office Visit 03/25/2018 3:15p Lyndsey Ross RN [facility] 08381 E78.2 R73.01 I10 E03.9 G47.62 R53.83 Office Visit 02/19/2017 8:40a Lyndsey Ross RN [facility] 75377 E78.2 I10 E03.9 Office Visit 12/02/2016 11:20[place] [address] J18.9 Office Visit 08/21/2016 9:40a Lyndsey Ross RN [facility] 25757 Z00.00 E03.9 E78.2 I10 Z23 Office Visit 02/28/2016 2:00p Lyndsey Ross RN [facility] G0439 Z00.00 E78.2 Office Visit 08/10/2013 10:00a Lyndsey Ross RN [facility] 22107 782.9 272.2 401.1 Office Visit 03/16/2013 9:40a Lyndsey Ross RN [facility] 51036 272.2 724.2 Office Visit 02/16/2013 9:00a Lyndsey Ross RN [facility] 87481 724.2 272.2 401.1 Office Visit 03/23/2012 10:40a Lyndsey Ross RN [facility] 31513 782.8 300.02 401.1 272.0 Office Visit 02/12/2012 3:00p Lyndsey Ross RN [facility] 88547 782.8 300.02 401.1 Office Visit 11/25/2011 8:00a Lyndsey Ross RN [facility] 97619 V70.0 401.1 272.0 268.9 789.06 Office Visit 10/31/2010 8:00a Lyndsey Ross RN [facility] 13762 V72.31 401.1 272.0 268.9 599.70 Office Visit 07/24/2010 3:00p Lyndsey Ross RN [facility] 62553 789.06 733.02 Office Visit 10/11/2009 8:15a Lyndsey Ross RN [facility] 31959 V70.0 733.02 401.1 272.0 Office Visit 06/29/2008 9:15a Lyndsey Ross RN [facility] 08300 733.02 272.0 Office Visit 02/22/2008 11:20a Twila Castillo [place] [address] 401.1 272.0 Office Visit 02/21/2008 9:30a Lyndsey Ross RN [facility] 65294 V72.31 272.0 401.1 Office Visit 09/21/2006 3:00p Lyndsey Ross RN [facility] 45367 272.0 Office Visit 08/20/2006 2:30p Lyndsey Ross RN [facility] 22871 V70.0 272.0 V72.31 Office Visit 02/04/2001 2:00p Kaleb Guzman M.D. 52155 Office Visit 01/04/2001 10:10a Kaleb Guzman M.D. 60182 Office Visit 12/25/2000 10:10a Kaleb Guzman M.D. 20401 Plan of Care Future Appointment(s):08/27/2018 8:40 am - Lyndsey Escalona RN [facility] at [id number]/21/2018 - Lyndsey Escalona RN [place] FNPZ00.00 Encntr for general adult medical exam w/o abnormal findingsMiscellaneous:Discussed shingrix vaccine, it is 2 shots 60 days apart for the prevention of shingles, You can havethe shot even if you have had shingles in the past , or have had the zostivax shingles shot in the past. Currently it is given at the pharmacy with an order from our office. The series is given just once and it may be covered by medicare. You may check your insurance or at the pharmacy for the coverage. .E11.65 Type 2 diabetes mellitus with hyperglycemiaMiscellaneous:DISCUSSED NEED FOR YEARLY DIABETIC EYE EXAM.ADVISE YOUR EYE DOCTOR YOU HAVE DIABETES AND THE EYE EXAM MAY BE COVERED UNDER MEDICAL INSURANCE. PLEASE BRING IN OR HAVE YOUR EYE DOCTOR SEND US A COPY OF YOUR EYE EXAM ALSO FOR OUR RECORDS . ALSO YOU NEED TO SCHEDULE A PODIATRY EXAM YEARLY.I10 Essential (primary) hypertensionMiscellaneous:REVIEWED MEDICAL IMPLICATIONS OF HIGH BLOOD PRESSURE LIKE, STROKE, HEART ATTACK, TIA, REVIEWED THINGS THAT MAY LOWER BP LIKE LOW SALT DASH DIET( OFFERED INFO, OR CAN GOOGLE) INCREASING DAILY EXERSIZE.CUTTING OUT STIMULANTS LIKE NICOTINE OR CAFFINE AND WEIGHT LOSS. CONTINUE WEEKLY BP ZPMNEQAW71.2 Mixed hyperlipidemiaMiscellaneous:CONTNUE ON A LOW FAT DIET, COUNTINUE TO EXERSIZE ON A REGULAR BASIS AND CONTINUE TO MONITOR THE CHOLESTEROL LEVELS EVERY 6 MONTHS WHILE ON THE CHOLESTEROL MEDICATION. SHE HAS BEEN TRIED ON ALL THE STATINS, PRAVASTATIN, ZOCOR AND IS INTOLERANT AND DECLINES ANY NEW TRIAL AT THIS TIME W LOW DOSE CRESTOR....... PERHAPS CARDIO CAN CONVINCE HER IT IS A GOOD THING,E03.9 Hypothyroidism, tgqctqnvvkoQ99.31 Abnormal electrocardiogram [ECG] [EKG]Comments:SOME NEW ANTERIOR WALL CHANGES ON EKG, WILL SEND TO CARDIO FOR FINAL CLEARANCEReferral:[facility] ,Z12.31 Encntr screen mammogram for malignant neoplasm of breastComments: REVIEWED NEED FOR MONTHLY BREAST EXAMS, REVIEWED WITH PATIENT WHILE PREFORMING BREAST EXAM. ENCOURAGED HER TO DECIDE ON A PLAN FOR BREAST EXAMS THAT IS WORKABLE FOR HER. DECLINED MAMMOGRAM.Z23 Encounter for immunizationNew Medication:Shingrix 50 mcgZ12.11 Encounter for screening for malignant neoplasm of colonFollow up:[facility] [id number] Encounter for other preprocedural examinationComments:the pt is not cleared for surgery at this time, she will need cardiac clearance d/t an abnormal EKG
--- OUTSIDE RECORDS SUMMARY | 2018-06-18 08:18 | XMS REPORT ---
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 Payers Type Date Identification Numbers Payment Provider Subscriber Commercial Effective: Policy Number: BCBS Medicare Gus Marinajustin Smithrows 2016 [id number] Group Number: [id number] [address] [address] PayID: [id number] DOC Roland [id number] Problems Date Description Provider Status Onset: 03/16/2013 Mixed hyperlipidemia Lyndsey Escalona RN MS HEMATOLOGY NURSE Active Onset: 03/16/2013 Low back pain Lyndsey Escalona, RN MS HEMATOLOGY NURSE Active Onset: 03/16/2013 Benign essential hypertension Lyndsey Escalona, RN MS HEMATOLOGY NURSE Active Onset: 03/16/2013 Generalized anxiety disorder Lyndsey Escalona, RN MS HEMATOLOGY NURSE Active Family History Date Family Member(s) Problem(s) [...] dog 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 [employer] Cigarette Use Never Smoked Cigarettes ETOH Use [...] injection Lyndsey as Jaclyn RN MS directed HEMATOLOGY NURSE Levothyroxine 04/21 Active Tablets 25mcg 90tabs 1 by E03.9 [place] mouth Lyndsey every day Jaclyn, RN MS HEMATOLOGY NURSE Glipizide 04/01 Active Tablets 5mg 90tabs 1 by mouth Lyndsey every day Jaclyn, RN MS HEMATOLOGY NURSE Freestyle Lite 04/01 Active Strips 180units for twice E11.65 Iqra, a day Lyndsey glucose Jaclyn, RN MS testing [facility] e11.65 Vitamin D-400 02/19 Active Tablets 400Unit One Daily Lyndsey Anaya, RN MS HEMATOLOGY NURSE Lisinopril 02/27 Active Tablets 5mg 90tabs 1 by I10 Iqra mouth Lyndsey every day Jaclyn RN MS [facility] Vitamin B 08/20 Active Capsules Z00.00 Iqra Complex Lnydsey Anaya, RN MS HEMATOLOGY NURSE Januvia 04/28 Hx Tablets 50mg 30tabs One A Day Lyndsey - LUCIANA Anaya MS 05/05 Nitrofurantoin 04/21 Hx Capsules 100mg 14caps one tab R31.9 twice a Lyndsey - day x 7 Jaclyn RN MS 05/21 days Metformin HCL 05/06 Hx Tablets 500mg 45tabs take 1 tablets Lyndsey - once Jaclyn RN MS 03/25 daily for 1- 2 weeks then may take twice a day with meals Vitamin 02/19 Hx Tablets Iqra B- Lyndsey - LUCIANA Anaya MS 02/19 Azithromycin 12/02 Hx Tablets 500mg 3tabs 1 by J18.9 Zane mouth Lisha - every day MD Jagdeep 12/05 Proair HFA 12/02 Hx Aerosol 108(90Bas 17gm 2 puffs J18.9 Zane e) every 6 Lisha - mcg/Act hours as MD Jagdeep 12/12 needed wheezing/ sob [Substitu e as needed] Levothyroxine 08/28 Hx Tablets 25mcg 90tabs 1 by Iqra Sodium mouth Lyndsey - every day C RN MS 09/03 Lidoderm 08/10 Hx Patches 5% O1Gacrsi apply 782.9 patch Lyndsey - daily as Jaclyn RN MS 02/27 directed. leave on for 12 hours/day only. march cut to fit tender area. Atorvastatin 03/16 Hx Tablets 10mg 30tabs 1 po qd 272.2 Iqra Calcium Lyndsey Anaya RN MS 08/10 Diclofenac 03/[address] 50mg 60tabs 1 po bid 724.2 Iqra Sodium as Needed Lyndsey - For Pain Jaclyn RN MS 08/10 Fish Oil + D3 02/16 Hx Capsules 8039-3520 272.2 mg-Unit Lyndsey Anaya RN MS 02/27 Lisinopril 02/16 Hx Tablets 5mg 90tabs 1 po qd 272.2 Lyndsey Anaya RN MS 08/10 Flexeril 02/16 Hx Tablets 10mg 45tabs 1/2 tab q8rs and Lyndsey - 1 tab hs Jaclyn RN MS 08/10 prn muscle spasm Return To Work 06/23 Hx march return to Lyndsey - full duty Jaclyn RN MS 07/03 as of 06/28/12March Return To 03/23 Hx after 782.8 [place], Work Only 04/05/2012 Lyndsey Lawrence - Jaclyn RN MS Special Gloves 03/23 Pravachol 03/23 Hx Tablets 20mg 90tabs One Daily 782.8 Iqra Lyndsey Anaya RN MS 02/16 Out Of Work 03/23 Hx For for the Medical rest of Lyndsey - Reasons school Jaclyn RN MS 04/02 year. No Work For 02/11 Hx 782.8 Iqra, Rest Of School /2011 Year. - Jaclyn RN MS 02/11 No Work 02/11 Hx For D/t 782.8 Medical allergic Lyndsey - Reasons skin C, RN MS 02/21 reactions to hands and high blood pressure readings. till april 05. Drisdol 11/27 Hx Capsules 95129Gkfo 8caps 1 tab po q weekly Lyndsey [...] stomach as dir isdol 10/18 Hx Capsules 55011Lwcb 8caps 1 tab po q weekly Lyndsey [...] Hx Tablets 10mg 90tabs 1 PO qd Lyndsey - C, RN MS 02/16 Fasting Lab 03/28 Hx DX 272.2 lipid Iqra, Test In May treatment Lyndsey (Late) - jeanne Anaya, LUCIANA MS 10/18 fax report to [phone] Zocor 09/21 Hx Tablets 20mg 90tabs 1 PO qd 272.0 Iqra, Lyndsey Anaya, RN MS 02/20 Fasting Blood 09/21 Hx DX 272.0 lipid 272.0 Iqra treatment Lyndsey - jeanne Anaya RN MS 02/20 Due in s-8 weeks from above date Calcium Plus 08/20 Hx Tablets 500mg 0tabs 1 PO qd V70.0 Iqra Vit D Lyndsey Anaya RN MS 02/27 Vitamin C 08/20 Hx Capsules 500mg 30caps 1 PO qd V70.0 Iqra Lyndsey Anaya RN MS 02/20 Vitamin E 08/20 Hx Tablets 200Units V70.0 Iqra Lyndsey Anaya RN MS 02/20 Multi For OTC 00/ Hx Tablets 1 by Unknown /0000 mouth - every day 02/19 Krill Oil Hx Capsules 1000mg 1 by Unknown /0000 mouth - every day 05/21 Diazepam 00 Hx Concentrate 5mg/ml 1 PO Unknown /0000 Q8HRS - 05/21 Glipizide 00 Hx Tablets 5mg 1 by [place], /0000 mouth Lyndsey - every day LUCIANA Anaya MS 04/01 Meclizine HCL 00 Hx Tablets 25mg 30tabs 1 by [place], /0000 mouth Lyndsey - three LUCIANA Anaya MS 05/21 times a day as needed Immunizations CPT Code Status Date Vaccine Lot # [id number] Given 09/19/2016 Influenza Vac, 3 Yrs & Older, Quadrivalent, [place], [place] [address] Given 08/21/2016 Tdap (Adacel) Ages 7 And Above Only [id number] 03003 Given 02/01/2015 Prevnar 13 Pneumococal Conjugate Vaccine 86321 Given 02/01/2015 Prevnar 13 Pneumococal Conjugate Vaccine [id number] 61231 Given 10/23/2009 Influenza Virus Vaccine Pandemic Formulation - [id number] 90293 Given 10/23/2009 Administration Swine Flu Vaccine [id number] 55176 Given 08/22/2008 Afluria Or Fluvirin Flu Vac Intramuscular 26443 Given 08/22/2008 Afluria Or Fluvirin Flu Vac Intramuscular [id number] 05455 Given 07/04/2008 Zoster (Zostavax) 87403 Given 07/04/2008 Zoster (Zostavax) [id number] 31988 Given 09/21/2007 Afluria Or Fluvirin Flu Vac Intramuscular 34040 Given 08/19/2006 Afluria Or Fluvirin Flu Vac Intramuscular 96331 Given 08/19/2006 Afluria Or Fluvirin Flu Vac Intramuscular 14672 Given 08/11/2005 Pneumococcal 23 Immunization Adult Or Immunosuppressed Patient 53428 Given 08/11/2005 Pneumococcal 23 Immunization Adult Or Immunosuppressed Patient 61862 Given 08/11/2005 Afluria Or Fluvirin Flu Vac Intramuscular 53672 Given 08/11/2005 Afluria Or Fluvirin Flu Vac Intramuscular 70723 Given 08/16/2004 Afluria Or Fluvirin Flu Vac Intramuscular 34425 Given 10/09/1999 Immunization Td 7 Yrs Or Older 30425 Refused 08/21/2016 Influenza Vac, 3 Yrs & [...] Test Date Test Result H/L Range Note Laboratory test 05/21/2018 Hemoglobin A1c <pending> finding Laboratory test 05/21/2018 TSH <pending> finding Laboratory test 04/21/2018 Urine Culture Microbiology res 1, 2 finding <SEE NOTE> Comprehensive Met 04/21/2018 Sodium 140 mmol/L 135-146 3 Panel-FCMG Potassium 5.2 mmol/L 3.5-5.2 Chloride# 102 mmol/L 97-110 4 Carbon Dioxide 27 mmol/L 24-34 Glucose 85 mg/dL 70-105 BUN 18 mg/dL 6-26 Creatinine 0.6 mg/dL 0.5-1.4 Calcium 10.1 mg/dL 8.5-10.2 Total Protein 7.4 g/dL 6.0-8.0 Albumin 4.3 g/dL 3.6-4.9 Globulin 3.1 g/dL 2.0-3.5 A/G Ratio 1.4 Ratio 1.0-2.2 Total Bilirubin 0.4 mg/dL 0.1-1.3 Alkaline Phosphatase 117 U/L 24-140 Alt 23 U/L 3-42 Ast 17 U/L 8-42 Keesha Egfr >60 >60 5 Non Keesha Egfr >60 >60 6 Anion Gap 11 mmol/L 5-15 7 Lipid Panel-fcmg 03/27/2018 Cholesterol, Total 276 mg/dL High 100-199 Triglycerides 204 mg/dL High 0-149 HDL Cholesterol 46 mg/dL >39 VLDL Cholesterol Ion 41 mg/dL High 5-40 LDL Cholesterol Calc 189 mg/dL High 0-99 Comment: [place] Laboratory test finding 03/27/2018 Hemoglobin D2s-OREX <pending> TSH 8.450 uIU/mL High 0.450-4.500 CBC/Diff [...] Immature Grans (Abs) 0.0 x10E3/uL 0.0-0.1 NRBC [facility] Hematology Comments: TNP 8 Metabolic Panel (14), Comprehensive 03/27/2018 Glucose 264 [...] 03/27/2018 Hemoglobin A1c 12.1 % High 4.8-5.6 9 Laboratory test finding 03/27/2018 Thyroid Stimulating <pending> Hormone (TSH) PDF [id number] SEE IMAGE Comprehensive Metabolic (CMP) 04/27/2017 Sodium 139 mmol/L 135-146 10, 11 Potassium 5.5 No visible h <SEE NOTE> mmol/L High 3.5-5.2 10, 12 Chloride# 106 mmol/L 97-110 10, 13 Carbon Dioxide 25 mmol/L 24-34 10 Glucose 111 mg/dL High 70-105 10 BUN 20 mg/dL 6-26 10 Creatinine 0.8 mg/dL 0.5-1.4 10 Calcium 9.8 mg/dL 8.5-10.2 10 Total Protein 6.9 g/dL 6.0-8.0 10 Albumin 4.3 g/dL 3.6-4.9 10 Globulin 2.6 g/dL 2.0-3.5 10 A/G Ratio 1.7 Ratio 1.0-2.2 10 Total Bilirubin 0.7 mg/dL 0.1-1.3 10 Alkaline Phosphatase 102 U/L 24-140 10 Alt 24 U/L 3-42 10 Ast 21 U/L 8-42 10 Keesha Egfr >60 >60 10, 14 Non Keesha Egfr >60 >60 10, 15 Anion Gap 14 mmol/L 7-16 10, 16 Hemoglobin A1c 04/27/2017 Hemoglobin A1c 7.0 % High 4.1-5.9 10 Estimated Average Glucose Calc 154 High 71-140 10 Lipid 04/27/2017 Cholesterol 255 mg/dL High 50-199 10 Triglycerides 190 mg/dL 30-200 10 HDL 39 mg/dL 35-85 10, 17 Chol/ HDL Ratio 6.6 ratio High 3.7-5.6 10 VLDL 38 mg/dL High 2-29 10 LDL (Calc) 178 mg/dL High 20-99 10, 18 Lipid 02/19/2017 Cholesterol 282 mg/dL High 50-199 10 Triglycerides 257 mg/dL High 30-200 10 HDL 46 mg/dL 35-85 10, 19 Chol/ HDL Ratio 6.1 ratio High 3.7-5.6 10 VLDL 51 mg/dL High 2-29 10 LDL (Calc) 185 mg/dL High 20-99 10, 20 Laboratory test finding 02/19/2017 TSH 6.59 uIU/mL High 0.35-4.94 10 Comprehensive Metabolic (CMP) 02/19/2017 Sodium 141 mmol/L 135-146 10, 21 Potassium 4.6 mmol/L 3.5-5.2 10 Chloride# 102 mmol/L 97-110 10, 22 Carbon Dioxide 26 mmol/L 24-34 10 Glucose 131 mg/dL High 70-105 10 BUN 17 mg/dL 6-26 10 Creatinine 0.7 mg/dL 0.5-1.4 10 Calcium 10.0 mg/dL 8.5-10.2 10 Total Protein 7.5 g/dL 6.0-8.0 10 Albumin 4.7 g/dL 3.6-4.9 10 Globulin 2.8 g/dL 2.0-3.5 10 A/G Ratio 1.7 Ratio 1.0-2.2 10 Total Bilirubin 0.7 mg/dL 0.1-1.3 10 Alkaline Phosphatase 106 U/L 24-140 10 Alt 24 U/L 3-42 10 Ast 21 U/L 8-42 10 Keesha Egfr >60 >60 10, 23 Non Keesha Egfr >60 >60 10, 24 Anion Gap 18 mmol/L High 7-16 10, 25 Laboratory test finding 08/21/2016 TSH 5.31 uIU/mL High 0.35-4.94 Lipid 08/21/2016 Cholesterol 266 mg/dL High 50-199 Triglycerides 212 mg/dL High 30-200 HDL 43 mg/dL 35-85 26 Chol/ HDL Ratio 6.2 ratio High 3.7-5.6 VLDL 42 mg/dL High 2-29 LDL (Calc) 181 mg/dL High 20-99 27 Comprehensive Metabolic (CMP) 08/21/2016 Sodium 138 mmol/L 134-142 Potassium 5.5 No visible h <SEE NOTE> mmol/L High 3.5-5.2 28 Chloride 104 mmol/L 97-109 Carbon Dioxide 27 [...] 23 U/L 8-42 Anion Gap 13 mmol/L 04-22 Keesha Egfr >60 >60 29 Non Keesha Egfr >60 >60 30 Lipid 02/21/2016 Cholesterol 252 mg/dL High 50-199 Triglycerides 197 mg/dL 30-200 HDL 43 mg/dL 35-85 31 Chol/ HDL Ratio 5.9 ratio High 3.7-5.6 VLDL 39 mg/dL High 2-29 LDL (Calc) 170 mg/dL High 20-99 32 Comprehensive Metabolic (CMP) 02/21/2016 Sodium 137 mmol/L 134-142 Potassium 5.8 No visible h <SEE NOTE> mmol/L High 3.5-5.2 33 Chloride 102 mmol/L 97-109 Carbon Dioxide 29 [...] 22 U/L 8-42 Anion Gap 12 mmol/L 04-22 Keesha Egfr >60 >60 34 Non Keesha Egfr >60 >60 35 Laboratory test finding 02/21/2016 TSH 5.32 uIU/mL [...] Lipid 08/10/2013 Cholesterol 281 mg/dL High 50-199 36 Triglycerides 391 mg/dL High 30-200 36 HDL 44 mg/dL 35-85 36, 37 Chol/ HDL Ratio 6.4 ratio High 3.7-5.6 36 VLDL 78 mg/dL High 2-29 36 LDL (Calc) 159 mg/dL High 20-99 36, 38 CBC With Auto Diff 08/10/2013 WBC 8.0 K/uL 4.1-11.0 36 RBC 4.64 M/uL 4.00-5.40 36 Hemoglobin 14.7 gm/dL 12.0-16.0 36 Hematocrit 44.1 % 36.0-47.0 36 MCV 94.9 fL 80.0-97.0 36 MCH 31.6 pg 27.0-32.0 36 MCHC 33.2 g/dL 32.0-36.0 36 RDW 13.3 % 11.5-14.5 36 PLT Count 244 K/ul 140-400 36 Neutrophil 72.8 % 35.0-75.0 36 Lymphocyte 17.3 % 16.0-52.0 36 Monocyte 7.4 % 2.0-10.0 36 Eosinophil 1.5 % 0.0-5.0 36 Basophil 1.0 % 0.0-4.0 36 Abs Neutrophils 5.8 K/uL 2.1-8.0 36 Abs Lymphocytes 1.4 K/uL 0.8-5.5 36 Abmon 0.6 K/uL 0.1-1.0 36 Abs Eosinophils 0.1 K/uL 0.0-0.5 36 Abs Basophils 0.1 K/uL 0.0-0.3 36 Lipid 02/16/2013 Cholesterol 264 mg/dL High 50-199 39 Triglycerides 183 mg/dL 30-200 39 HDL 42 mg/dL 35-85 39, 40 Chol/ HDL Ratio 6.3 ratio High 3.7-5.6 39 VLDL 37 mg/dL High 2-29 39 LDL (Calc) 185 mg/dL High 20-129 39, 41 Comprehensive Metabolic (CMP) 02/16/2013 Sodium 137 mmol/L 134-142 39 Potassium 5.4 mmol/L High 3.5-5.2 39, 42 Chloride 104 mmol/L 97-109 39 Carbon Dioxide 26 mmol/L 24-34 39 Glucose 106 mg/dL High 70-105 39 BUN 24 mg/dL 6-26 39 Creatinine 0.7 mg/dL 0.5-1.4 39 Calcium 10.0 mg/dL 8.5-10.2 39 Total Protein 7.4 g/dL 6.0-8.0 39 Albumin 4.6 g/dL 3.6-4.9 39 Globulin 2.8 g/dL 2.0-3.5 39 A/G Ratio 1.6 Ratio 1.0-2.2 39 Total Bilirubin 0.7 mg/dL 0.1-1.3 39 Alkaline Phosphatase 96 U/L 24-140 39 Alt 30 U/L 3-42 39 Ast 23 U/L 8-42 39 Anion Gap 12 mmol/L 6-14 39 Keesha Egfr >60 >60 39, 43 Non Keesha Egfr >60 >60 39, 44 Lipid 06/30/2012 Cholesterol 240 mg/dL High 50-199 45 Triglycerides 151 mg/dL 30-200 45 HDL 43 mg/dL 35-85 45, 46 Chol/ HDL Ratio 5.6 ratio 3.7-5.6 45 VLDL 30 mg/dL High 2-29 45 LDL (Calc) 167 mg/dL High 20-129 45, 47 Lipid Treatment 05/11/2012 Cholesterol 216 mg/dL High 50-199 48 Triglycerides 233 mg/dL High 30-200 48 HDL 34 mg/dL Low 35-85 48, 49 Chol/ HDL Ratio 6.4 ratio High 3.7-5.6 48 VLDL 47 mg/dL High 2-29 48 LDL (Calc) 135 mg/dL High 20-129 48, 50 Alt 27 U/L 3-42 48 Ast 23 U/L 8-42 48 Laboratory test finding 11/27/2011 H. Pylori Stool Ag SEE NOTE 51, 52 Laboratory test finding 11/25/2011 Vit D,25 Hydroxy 28 ng/mL Low 31-100 51 Comprehensive Metabolic 11/25/2011 Sodium 138 mmol/L 135-144 51 (CMP) Potassium 5.6 No visible h <SEE NOTE> mmol/L High 3.5-5.1 51, 53 Chloride 105 mmol/L 97-107 51 Carbon Dioxide 25 mmol/L 23-33 51 Glucose 110 mg/dL High 70-105 51 BUN 23 mg/dL 7-25 51 Creatinine 0.7 mg/dL 0.6-1.2 51 Calcium 9.9 mg/dL 8.6-10.3 51 BUN/CR 31 ratio High 12-20 51 Total Protein 7.7 g/dL 6.0-8.5 51 Albumin 4.5 g/dL 3.5-5.7 51 Globulin 3.2 g/dL 2.0-3.5 51 A/G Ratio 1.4 Ratio 1.0-2.2 51 Total Bilirubin 0.7 mg/dL 0.3-1.3 51 Alkaline Phosphatase 82 U/L 34-104 51 Alt 30 U/L 7-52 51 Ast 26 U/L 13-39 51 Anion Gap 14 mmol/L 8-16 51 Non Keesha Egfr >60 >60 51, 54 Keesha Egfr >60 >60 51, 55 Lipid 11/25/2011 Cholesterol 248 mg/dL High 50-199 51 Triglycerides 184 mg/dL High 10-150 51 HDL 48 mg/dL 23-92 51, 56 Chol/ HDL Ratio 5.2 ratio 3.7-5.6 51 VLDL 37 mg/dL High 2-29 51 LDL (Calc) 163 mg/dL High 20-129 51, 57 Laboratory test finding 11/25/2011 TSH 5.11 uIU/mL 0.34-5.60 51 CBC With Auto Diff 11/25/2011 WBC 6.1 K/uL 4.1-11.0 51 RBC 4.64 M/uL 4.00-5.40 51 Hemoglobin 15.6 gm/dL 12.0-16.0 51 Hematocrit 44.8 % 36.0-47.0 51 MCV 96.4 fL 80.0-97.0 51 MCH 33.6 pg High 27.0-32.0 51 MCHC 34.8 g/dL 32.0-36.0 51 RDW 13.1 % 11.5-14.5 51 PLT Count 235 K/ul 140-400 51 Neutrophil 70.5 % 35.0-75.0 51 Lymphocyte 21.6 % 16.0-52.0 51 Monocyte 6.5 % 2.0-10.0 51 Eosinophil 1.0 % 0.0-5.0 51 Basophil 0.4 % 0.0-4.0 51 Abs Neutrophils 4.3 K/uL 2.1-8.0 51 Abs Lymphocytes 1.3 K/uL 0.8-5.5 51 Abs Monocytes 0.4 K/uL 0.1-1.0 51 Abs Eosinophils 0.1 K/uL 0.0-0.5 51 Abs Basophils 0.0 K/uL 0.0-0.3 51 Laboratory test finding 10/31/2010 Surepath Pap - [place] (SEE NOTE) 51, 58 Laboratory test finding 10/31/2010 Urine Culture >100,000 CFU/ML <SEE 59 NOTE> Preliminary Ur. Culture Result GRAM NEGATIVE RO <SEE NOTE> 60 Laboratory test finding 10/31/2010 TSH 3.78 uIU/ml 0.34-5.60 61 CBC With Auto Diff 10/31/2010 WBC 5.0 K/ul 4.0-10.9 61 RBC 4.38 M/ul 4.20-5.40 61 Hemoglobin 14.6 GM/dl 12.5-16.0 61 Hematocrit 42.1 % 36.0-47.0 61 MCV 96.2 FL 80.0-97.0 61 MCH 33.4 pg High 27.0-31.0 61 MCHC 34.7 g/dL 32.0-36.0 61 RDW 13.4 % 11.5-14.5 61 Platelet Count 229 K/ul 140-440 61 Neutrophils 68.3 % 50-70 61 Lymphocytes 23.6 % 20-44 61 Monocytes 6.3 % 2-9 61 Eosinophil 1.3 % 0-4 61 Basophil 0.5 % 0-2 61 Absolute Neutrophils 3.4 K/ul 2.05-7.63 61 Absolute Lymphocytes 1.2 K/ul 0.8-4.8 61 Absolute Monocytes 0.3 K/ul 0.1-1.0 61 Absolute Eosinophils 0.1 K/ul 0.1-0.5 61 Absolute Basophils 0.0 K/ul 0.0-0.3 61 Hematology Comment (Comm2) N/A 61 Gram Negative Sensitivity 10/31/2010 Ampicillin (Am) SENSITIVE Ampicillin/Sulbactam (Jose M) SENSITIVE Cefazolin (CZ) SENSITIVE Ceftriaxone (Change Release Manager SENSITIVE Ciprofloxacin (Cip) SENSITIVE Nitrofurantoin (FT) RESISTANT Trimethoprim/Sulfamethoxazole (SXT) SENSITIVE Urinalysis With Microscopic-RL 10/31/2010 Color -LA YELLOW 62 Appearance -LA CLOUDY 62 Specific [place] -LA 1.023 1.003-1.030 62 PH Urine -LA 6.5 5.0-7.5 62 Leukocyte Esterase -LA 3+ (Neg) 62 Nitrite -LA NEGATIVE (Neg) 62 Protein Urine-LA NEGATIVE (Neg) 62 Glucose Urine -LA NEGATIVE (Neg) 62 Ketone Urine -LA NEGATIVE (Neg) 62 Urobilinogen -LA 0.2 mg/dL 0-1.0 62 Blood/HGB Urine-RL NEGATIVE (Neg) 62 Urine WBC -LA * 10-25 /HPF (0-5) 62 Urine RBC -LA NONE SEEN /HPF (0-2) 62 Bacteria -LA 2+ /HPF 62 Fine Gran Cast N/A /LPF 62 WBC Cast N/A /LPF 62 Bilirubin Urine -LA NEGATIVE (Neg) 62 Epithelial Cells -LA 1+ /HPF 62 Mucus -LA 1+ /HPF 62, 63 Laboratory test finding 10/31/2010 Vitamin D, 25 Hydroxy 22 ng/mL Low 31- 100 64 CMP 10/31/2010 Sodium 142 mmol/L 135-144 64 Potassium 5.6 mmol/L High 3.6-5.2 64, 65 Chloride 105 mmol/L 97-110 64 Carbon Dioxide 28 mmol/L 23-32 64 Glucose 104 mg/dL 70-105 64 BUN 19 mg/dL 6-22 64 Creatinine 0.7 mg/dL 0.5-1.3 64 BUN/CR 27 Ratio 64 Calcium 10.1 mg/dL 8.6-10.2 64 Total Protein 6.9 g/dL 5.8-7.8 64 Albumin 4.3 g/dL 3.5-4.8 64 Globulin 2.6 g/dL 2.0-3.5 64 A/G Ratio 1.7 Ratio 1.0-2.2 64 Total Bilirubin 0.8 mg/dL 0.3-1.2 64 Alkaline Phosphatase 67 U/L 24-140 64 Alt 24 U/L 5-45 64 Ast 26 U/L 12-40 64 Anion Gap 15 mmol/L 8-16 64 GFR Calculation > 60 mL/min 60-175 64, 66 GFR For > 60 mL/min 60-175 64, 67 Lipid Panel 10/31/2010 Cholesterol 244 mg/dL High 50-199 64 Triglycerides 163 mg/dL High 10-150 64 HDL 45 mg/dL 35-85 64, 68 Chol/HDL Ratio 5.4 Ratio 3.7-5.6 64, 69 VLDL 33 mg/dL High 2-29 64 LDL (Calc) 166 mg/dL High 20-129 64, 70 Laboratory test finding 10/11/2009 Vitamin D, 25 Hydroxy 24 ng/mL Low 31- 100 71 Lipid TX Panel 10/11/2009 Ast 26 U/L 12-40 71 Alt 31 U/L 5-45 71 Cholesterol 262 mg/dL High 50-199 71 Triglycerides 163 mg/dL High 10-150 71 HDL 43 mg/dL 35-85 71, 72 LDL (Calc) 186 mg/dL High 20-129 71, 73 Chol/HDL Ratio 6.1 Ratio High 3.7-5.6 71, 74 VLDL 33 mg/dL High 2-29 71 Basic (BMP) 10/11/2009 Sodium 142 mmol/L 135-144 71 Potassium 4.6 mmol/L 3.6-5.2 71 Chloride 108 mmol/L 97-110 71 Carbon Dioxide 26 mmol/L 23-32 71 Glucose 97 mg/dL 70-105 71 BUN 18 mg/dL 6-22 71 Creatinine 0.6 mg/dL 0.5-1.3 71 BUN/CR 30 Ratio High 12.0-20.0 71 Anion Gap 13 mmol/L 8-16 71 Calcium 10.1 mg/dL 8.6-10.2 71, 75 GFR Calculation > 60 mL/min 60-175 71, 76 GFR For > 60 mL/min 60-175 71, 77 CBC With Auto Diff 10/11/2009 WBC 5.3 K/ul 4.0-10.9 71 RBC 4.52 M/ul 4.20-5.40 71 Hemoglobin 14.4 GM/dl 12.5-16.0 71 Hematocrit 43.4 % 36.0-47.0 71 MCV 96.0 FL 80.0-97.0 71 MCH 31.8 pg High 27.0-31.0 71 MCHC 33.1 g/dL 32.0-36.0 71 RDW 13.4 % 11.5-14.5 71 Platelet Count 244 K/ul 140-440 71 Neutrophils 65.7 % 50-70 71 Lymphocytes 24.0 % 20-44 71 Monocytes 6.7 % 2-9 71 Eosinophil 3.3 % 0-4 71 Basophil 0.3 % 0-2 71 Absolute Neutrophils 3.5 K/ul 2.05-7.63 71 Absolute Lymphocytes 1.3 K/ul 0.8-4.8 71 Absolute Monocytes 0.4 K/ul 0.1-1.0 71 Absolute Eosinophils 0.2 K/ul 0.1-0.5 71 Absolute Basophils 0.0 K/ul 0.0-0.3 71 Hematology Comment (Comm2) N/A 71 Laboratory test finding 10/11/2009 TSH 3.60 uIU/ml 0.34-5.60 71 Lipid TX Panel 02/21/2008 Ast 35 U/L 12-40 78 Alt 38 U/L 4-45 78 Cholesterol 287 mg/dL High 50-199 78 Triglycerides 177 mg/dL High 10-150 78 HDL 45 mg/dL 35-85 78 LDL (Calc) 207 mg/dL High 20-129 78 Chol/HDL Ratio 6.4 Ratio 78 VLDL 35 mg/dL 78 Laboratory test finding 02/21/2008 Vitamin D, 25 Hydroxy 27 ng/mL 19-58 78 Laboratory test finding 02/21/2008 TSH 5.50 uIU/ml 0.34-5.60 78 Basic (BMP) 02/21/2008 Sodium 138 mmol/L 135-144 78 Potassium 4.4 mmol/L 3.6-5.2 78 Chloride 102 mmol/L 97-110 78 Carbon Dioxide 29 mmol/L 23-33 78 Glucose 87 mg/dL 70-105 78 BUN 15 mg/dL 6-22 78 Creatinine 0.7 mg/dL 0.5-1.3 78 BUN/CR 21 Ratio High 12.0-20.0 78 Anion Gap 11 mmol/L 8-16 78 Calcium 9.6 mg/dL 8.6-10.2 78 GFR Calculation > 60 mL/min 78, 79 GFR For > 60 mL/min 78, 80 CBC With Auto Diff 02/21/2008 WBC 5.4 K/ul 4.0-10.9 78 RBC 4.58 M/ul 4.20-5.40 78 Hemoglobin 14.8 GM/dl 12.5-16.0 78 Hematocrit 41.8 % 36.0-47.0 78 MCV 91.3 FL 80.0-97.0 78 MCH 32.4 pg High 27.0-31.0 78 MCHC 35.5 g/dL 32.0-36.0 78 RDW 12.7 % 11.5-14.5 78 Platelet Count 273 K/ul 140-440 78 Neutrophils 65.2 % 50-70 78 Lymphocytes 25.6 % 20-44 78 Monocytes 6.1 % 2-9 78 Eosinophil 2.6 % 0-4 78 Basophil 0.5 % 0-2 78 Absolute Neutrophils 3.6 K/ul 2.05-7.63 78 Absolute Lymphocytes 1.4 K/ul 0.8-4.8 78 Absolute Monocytes 0.3 K/ul 0.1-1.0 78 Absolute Eosinophils 0.1 K/ul 0.1-0.5 78 Absolute Basophils 0.0 K/ul Low 0.1-0.3 78 Laboratory test 08/20/2006 Papsmear, Thinprep - SEE REFERENCE LA 81 finding LA <SEE NOTE> Lipid Panel 08/20/2006 Cholesterol 257 mg/dL High 50-199 82 Triglycerides 97 mg/dL 10-150 82 HDL 53 mg/dL 35-85 82 Chol/HDL Ratio 4.9 Ratio 82 VLDL 19 mg/dL 82 LDL (Calc) 185 mg/dL High 20-129 82 Basic (BMP) 08/20/2006 Sodium 141 mmol/L 135-144 82 Potassium 4.6 mmol/L 3.6-5.2 82 Chloride 106 mmol/L 97-110 82 Carbon Dioxide 27 mmol/L 23-33 82 Glucose 80 mg/dL 70-105 82 BUN 18 mg/dL 6-22 82 Creatinine 0.8 mg/dL 0.5-1.3 82 BUN/CR 23 Ratio High 12.0-20.0 82 Anion Gap 13 mmol/L 8-16 82 Calcium 9.6 mg/dL 8.6-10.2 82 GFR White Male 103 82 GFR White Female 76 82 GFR Black Male 125 82 GFR Black Female 92 82 GFR Guidelines 0 82, 83 Laboratory test finding 08/20/2006 TSH 3.44 uIU/ml 0.50-6.00 82 CBC With Auto Diff 08/20/2006 WBC 6.2 K/ul 4.0-10.9 82 RBC 4.40 M/ul 4.20-5.40 82 Hemoglobin 14.1 GM/dl 12.5-16.0 82 Hematocrit 39.9 % 36.0-47.0 82 MCV 90.9 FL 80.0-97.0 82 MCH 32.0 pg High 27.0-31.0 82 MCHC 35.2 g/dL 32.0-36.0 82 RDW 12.2 % 11.5-14.5 82 Platelet Count 257 K/ul 140-440 82 Neutrophils 71.6 % High 50-70 82 Lymphocytes 19.9 % Low 20-44 82 Monocytes 6.1 % 2-9 82 Eosinophil 1.8 % 0-4 82 Basophil 0.6 % 0-2 82 Absolute Neutrophils 4.5 K/ul 2.05-7.63 82 Absolute Lymphocytes 1.2 K/ul 0.8-4.8 82 Absolute Monocytes 0.4 K/ul 0.1-1.0 82 Absolute Eosinophils 0.1 K/ul 0.1-0.5 82 Absolute Basophils 0.0 K/ul Low 0.1-0.3 82 1 ALREADY TREATED W NITORFURANTIN 2 Microbiology results SOURCE Clean Catch Midstream COLONY [...] TETRACYCLINE >8 R VANCOMYCIN 2 S S=Sensitive;I=Indeterminate;R=Resistant 3 Updated reference range on new analyzer 4 Updated reference range on new analyzer 5 Concerning GFR Guidelines for Americans: Normal function or mild renal disease, if clinically at risk: >/=60 mL/min Moderately decreased: 30-59 Severely decreased: 15-29 Renal failure: <15 6 Concerning GFR Guidelines: Normal function or mild [...] drugs that are excreted by the kidneys. 7 Updated Reference Range 8 A hand-written panel/profile was received from your office. In accordance with the [facility] Ambiguous Test Code Policy dated May 2003, we have assigned CBC with Differential/Platelet, Test Code #166444 to this request. If this is not the testing you wished to receive on this specimen, please contact the [facility] Client Inquiry/ Technical Services Department to clarify the test order. We appreciate your business. 9 Pre-diabetes: 5.7 - 6.4 Diabetes: >6.4 Glycemic control for adults with diabetes: <7.0 10 This sample is drawn by:NB. 11 Updated reference range on new analyzer 12 5.5 No visible hemolysis. 13 Updated reference range on new analyzer 14 Concerning GFR Guidelines for Americans: Normal function or mild renal disease, if clinically at risk: >/=60 mL/min Moderately decreased: 30-59 Severely decreased: 15-29 Renal failure: <15 15 Concerning GFR Guidelines: Normal function or mild [...] drugs that are excreted by the kidneys. 16 Updated reference range on new analyzer 17 Per NCEP ATP III Guidelines: Results lower than 40 mg/dL are suggestive of increased risk for coronary artery disease. Results > or=to 60 mg/dL are considered a negative risk factor. 18 Per NCEP ATP III Guidelines: Normal Population <130 Patients with medical conditions: CHD/DM Optimal: <100 Borderline high: 130-159 High: 160-189 Very high: >189 19 Per NCEP ATP III Guidelines: Results lower than 40 mg/dL are suggestive of increased risk for coronary artery disease. Results > or=to 60 mg/dL are considered a negative risk factor. 20 Per NCEP ATP III Guidelines: Normal Population <130 Patients with medical conditions: CHD/DM Optimal: <100 Borderline high: 130-159 High: 160-189 Very high: >189 21 Updated reference range on new analyzer 22 Updated reference range on new analyzer 23 Concerning GFR Guidelines for Americans: Normal function or mild renal disease, if clinically at risk: >/=60 mL/min Moderately decreased: 30-59 Severely decreased: 15-29 Renal failure: <15 24 Concerning GFR Guidelines: Normal function or mild [...] drugs that are excreted by the kidneys. 25 Updated reference range on new analyzer 26 Per NCEP ATP III Guidelines: Results lower than 40 mg/dL are suggestive of increased risk for coronary artery disease. Results > or=to 60 mg/dL are considered a negative risk factor. 27 Per NCEP ATP III Guidelines: Normal Population <130 Patients with medical conditions: CHD/DM Optimal: <100 Borderline high: 130-159 High: 160-189 Very high: >189 28 5.5 No visible hemolysis. 29 Concerning GFR Guidelines for Americans: Normal function or mild renal disease, if clinically at risk: >/=60 mL/min Moderately decreased: 30-59 Severely decreased: 15-29 Renal failure: <15 30 Concerning GFR Guidelines: Normal function or mild [...] drugs that are excreted by the kidneys. 31 Per NCEP ATP III Guidelines: Results lower than 40 mg/dL are suggestive of increased risk for coronary artery disease. Results > or=to 60 mg/dL are considered a negative risk factor. 32 Per NCEP ATP III Guidelines: Normal Population <130 Patients with medical conditions: CHD/DM Optimal: <100 Borderline high: 130-159 High: 160-189 Very high: >189 33 5.8 No visible hemolysis. 34 Concerning GFR Guidelines [...] that are excreted by the kidneys. 36 This sample is drawn by:MM 37 Per NCEP ATP III Guidelines: Results lower than 40 mg/dL are suggestive of increased risk for coronary artery disease. Results > or=to 60 mg/dL are considered a negative risk factor. 38 Per NCEP ATP III Guidelines: Normal Population <130 Patients with medical conditions: CHD/DM Optimal: <100 Borderline high: 130-159 High: 160-189 Very high: >189 39 This sample is drawn by:JS 40 Per NCEP ATP III Guidelines: Results lower than 40 mg/dL are suggestive of increased risk for coronary artery disease. Results > or=to 60 mg/dL are considered a negative risk factor. 41 Per NCEP ATP III Guidelines: Optimal: <100 Near optimal: 100-129 Borderline high: 130-159 High: 160-189 Very high: >189 42 No visible hemolysis.,Testing performed on an aliquot tube. 43 Concerning GFR Guidelines for Americans: Normal function or mild renal disease, if clinically at risk: >/=60 mL/min Moderately decreased: 30-59 Severely decreased: 15-29 Renal failure: <15 44 Concerning GFR Guidelines: Normal function or mild [...] drugs that are excreted by the kidneys. 45 This sample is drawn by:MM 46 Per NCEP ATP III Guidelines: Results lower than 40 mg/dL are suggestive of increased risk for coronary artery disease. Results > or=to 60 mg/dL are considered a negative risk factor. 47 Per NCEP ATP III Guidelines: Optimal: <100 Near optimal: 100-129 Borderline high: 130-159 High: 160-189 Very high: >189 48 This sample is drawn by:BRANDY. 49 Per NCEP ATP III Guidelines: Results lower than 40 mg/dL are suggestive of increased risk for coronary artery disease. Results > or=to 60 mg/dL are considered a negative risk factor. 50 Per NCEP ATP III Guidelines: Optimal: <100 Near optimal: 100-129 Borderline high: 130-159 High: 160-189 Very high: >189 51 This sample is drawn by:MM 52 SPECIMEN DESCRIPTION STOOL RESULT NEGATIVE FOR H. PYLORI ANTIGEN BY EIA REPORT STATUS FINAL 11/28/2011 Unless otherwise specified, testing performed by [facility] [address] [place] [address] 53 5.6 No visible hemolysis. 54 Concerning GFR Guidelines: Normal function or mild [...] drugs that are excreted by the kidneys. 55 Concerning GFR Guidelines for Americans: Normal function or mild renal disease, if clinically at risk: >/=60 mL/min Moderately decreased: 30-59 Severely decreased: 15-29 Renal failure: <15 56 Per NCEP ATP III Guidelines: Results lower than 40 mg/dL are suggestive of increased risk for coronary artery disease. Results > or=to 60 mg/dL are considered a negative risk factor. 57 Per NCEP ATP III Guidelines: Optimal: <100 Near optimal: 100-129 Borderline high: 130-159 High: 160-189 Very high: >189 58 [facility]AT[facility] [place] [address] GYNECOLOGIC CYTOLOGY REPORT Accession Number: [id number] Source of Specimen(s): A: [facility] Vaginal/ Cervical/ Endocervical Pap Smear - One Vial Clinical Diagnosis and History: Date of Last Menstrual Period: None Provided Specimen Adequacy Satisfactory for evaluation Scant/no endocervical component General Categorization Negative for intraepithelial lesion or malignancy Interpretation NEGATIVE FOR INTRAEPITHELIAL LESION OR MALIGNANCY Reported: 11/05/2010 Electronically Signed Out By Gaby SAAVEDRA(ASCP) [facility] dol Unless otherwise specified, testing performed by [facility] [place] [address] 59 >100,000 CFU/ML PROTEUS MIRABILIS 60 GRAM NEGATIVE GUERO ISOLATED, ID & SENSITIVITY TO FOLLOW 61 FASTING This sample is drawn by:CATIE 62 This sample is drawn by:CATIE 63 Unless otherwise specified, testing performed by [facility] [place] [address] 64 FASTING This sample is drawn by:CATIE 65 CONFIRMED, NO HEMOLYSIS The difference between the most recent result of 4.6 and the current result of 5.6 exceeds the absolute delta value of 0.5 as defined for this test. 66 Concerning GFR GUIDELINES: Normal Function or Mild [...] drugs that are excreted by the kidneys. 67 Concerning GFR GUIDELINES: Normal Function or Mild Renal Disease, if clinically at risk: >/=60mL/min Moderately decreased: 30-59 Severely decreased: 15-29 Renal Failure: <15 68 PER NCEP ATP III GUIDELINES: RESULTS LOWER THAN 40 MG/DL ARE SUGGESTIVE OF INCREASED RISK FOR CORONARY ARTERY DISEASE. RESULTS > OR=TO 60 MG/DL ARE CONSIDERED A NEGATIVE RISK FACTOR. 69 INTERPRETATION OF CHOL-HDL RATIO CHD RISK FEMALE MALE VERY HIGH >8.3 >14.3 HIGH 5.6 - 8.3 6.7 - 14.3 AVERAGE 3.7 - 5.6 4.0 - 6.7 BELOW AVERAGE 2.5 - 3.7 2.7 - 4.0 PROTECTED <2.5 <2.7 70 PER NCEP ATP III GUIDELINES: OPTIMAL: <100 NEAR OPTIMAL: 100 - 129 BORDERLINE HIGH: 130 - 159 HIGH: 160 - 189 VERY HIGH: >189 71 FASTING This sample is drawn by: DB 72 PER NCEP ATP III GUIDELINES: RESULTS LOWER THAN 40 MG/DL ARE SUGGESTIVE OF INCREASED RISK FOR CORONARY ARTERY DISEASE. RESULTS > OR=TO 60 MG/DL ARE CONSIDERED A NEGATIVE RISK FACTOR. 73 PER NCEP ATP III GUIDELINES: OPTIMAL: <100 NEAR OPTIMAL: 100 - 129 BORDERLINE HIGH: 130 - 159 HIGH: 160 - 189 VERY HIGH: >189 74 INTERPRETATION OF CHOL-HDL RATIO CHD RISK FEMALE MALE VERY HIGH >8.3 >14.3 HIGH 5.6 - 8.3 6.7 - 14.3 AVERAGE 3.7 - 5.6 4.0 - 6.7 BELOW AVERAGE 2.5 - 3.7 2.7 - 4.0 PROTECTED <2.5 <2.7 75 The difference between the most recent result of 9.6 and the current result of 10.1 exceeds the absolute delta value of 0.3 as defined for this test. 76 Concerning GFR GUIDELINES: Normal Function or Mild [...] drugs that are excreted by the kidneys. 77 Concerning GFR GUIDELINES: Normal Function or Mild Renal Disease, if clinically at risk: >/=60mL/min Moderately decreased: 30-59 Severely decreased: 15-29 Renal Failure: <15 78 FASTING 79 Concerning GFR GUIDELINES: Normal Function or Mild [...] drugs that are excreted by the kidneys. 80 Concerning GFR GUIDELINES: Normal Function or Mild Renal Disease, if clinically at risk: >/=60mL/min Moderately decreased: 30-59 Severely decreased: 15-29 Renal Failure: <15 81 SEE REFERENCE LAB REPORT 82 JAZZY [id number] 83 Normal Function or Mild Renal Disease, if [...] Procedures Date CPT Code Description Status 05/21/2018 89123 Electrocardiogram Complete Completed 02/28/2016 95402 Electrocardiogram Complete Completed 02/01/2015 88988 Admin Of Inj (Therapeutic Phrophylactic Or Diagnostic Completed Subq Inj 11/25/2011 75538 Electrocardiogram Complete Completed 08/07/2011 Colonoscopy Completed 10/31/2010 94076 Electrocardiogram Complete Completed 05/20/2010 Mammogram Completed 05/09/2010 Bone Mineral Density Test Completed 10/11/2009 87959 Electrocardiogram Complete Completed 02/21/2008 15387 Electrocardiogram Complete Completed 01/04/2001 90896 Electrocardiogram Complete Completed Encounters Type Date Location Provider CPT E/M Dx Office Visit 04/21/2018 11:40a Lyndsey Ross, RN [facility] 85346 R31.9 E11.65 I10 E78.2 E03.9 Office Visit 04/01/2018 1:20p Lyndsey Ross RN [facility] 02072 E11.65 I10 E78.2 Office Visit 03/25/2018 3:15p Lyndsey Ross RN [facility] 06235 E78.2 R73.01 I10 E03.9 G47.62 R53.83 Office Visit 02/19/2017 8:40a Lyndsey Ross RN [facility] 50081 E78.2 I10 E03.9 Office Visit 12/02/2016 11:20[place] [address] J18.9 Office Visit 08/21/2016 9:40a Lyndsey Ross RN [facility] 32405 Z00.00 E03.9 E78.2 I10 Z23 Office Visit 02/28/2016 2:00p Lyndsey Ross RN [facility] G0439 Z00.00 E78.2 Office Visit 08/10/2013 10:00a Lyndsey Ross RN [facility] 21863 782.9 272.2 401.1 Office Visit 03/16/2013 9:40a Lyndsey Ross, LUCIANA [facility] 30959 272.2 724.2 Office Visit 02/16/2013 9:00a Lyndsey Ross, LUCIANA [facility] 67728 724.2 272.2 401.1 Office Visit 03/23/2012 10:40a Lyndsey Ross RN [facility] 06594 782.8 300.02 401.1 272.0 Office Visit 02/12/2012 3:00p Lyndsey Ross RN [facility] 54759 782.8 300.02 401.1 Office Visit 11/25/2011 8:00a Lyndsey Ross, LUCIANA [facility] 65479 V70.0 401.1 272.0 268.9 789.06 Office Visit 10/31/2010 8:00a Lyndsey Ross RN [facility] 75712 V72.31 401.1 272.0 268.9 599.70 Office Visit 07/24/2010 3:00p Lyndsey Ross RN [facility] 49308 789.06 733.02 Office Visit 10/11/2009 8:15a Lyndsey Ross RN [facility] 09547 V70.0 733.02 401.1 272.0 Office Visit 06/29/2008 9:15a Lyndsey Ross RN [place] [facility] 66715 733.02 272.0 Office Visit 02/22/2008 11:20a Twila Kirk Schedule [facility] 40014 401.1 272.0 Office Visit 02/21/2008 9:30a Lyndsey Ross RN [facility] 40678 V72.31 272.0 401.1 Office Visit 09/21/2006 3:00p Lyndsey Ross RN [facility] 92426 272.0 Office Visit 08/20/2006 2:30p Lyndsey Ross RN [facility] 48790 V70.0 272.0 V72.31 Office Visit 02/04/2001 2:00p Kaleb Guzman M.D. 82330 Office Visit 01/04/2001 10:10a Kaleb Guzman M.D. 83128 Office Visit 12/25/2000 10:10a Kaleb Guzman M.D. 33306 Plan of Care Future Appointment(s):08/27/2018 8:40 am - Lyndsey Escalona RN [place] [facility] at [facility]/21/2018 - Lyndsey Escalona RN [place] FNPZ00.00 Encntr [...] CAFFINE AND WEIGHT LOSS. CONTINUE WEEKLY BP CAISHEOG15.2 Mixed hyperlipidemiaMiscellaneous:CONTNUE ON A LOW FAT DIET, [...] HER IT IS A GOOD THING,E03.9 Hypothyroidism, [id number] Abnormal electrocardiogram [ECG] [EKG]Comments:SOME NEW ANTERIOR WALL [...] up:[facility] 3 MONTH KERRI FASTING
[2018-06-18] MEDS ORDERED: Famotidine IV* 10 MG/ML 2 ML (20 mg) ONE (08:45)
[2018-06-18] MEDS ORDERED: Scopolamine 1.5 mg* PATCH ONE (08:46)
[2018-06-18] MEDS ORDERED: ceFAZolin 2 GM PREMIX (*) 2 GM/50 ML BAG IVPB ONE (08:46)
[2018-06-18] MEDS ORDERED: oxyCODONE TAB* 5 MG TAB PO PRN (09:02)
[2018-06-18] MEDS ORDERED: PROCHLORPERAZINE INJ 5 MG/ML 2 ML VIAL IV PRN (09:02)
[2018-06-18] MEDS ORDERED: fentaNYL* 50 MCG/ML 2 ML VIAL (100 MCG VIAL) IV PRN (09:02)
[2018-06-18] MEDS ORDERED: Acetaminophen IV 1GM/100ML * 1,000 MG/100 ML VIAL IVPB ONE (09:02)
[2018-06-18] MEDS ORDERED: Naloxone* 0.4 MG/ML 1 ML VIAL IV PRN (09:02)
[2018-06-18] MEDS ORDERED: Lidocaine 1% MPF wEPI 200,000* 30 ML SDV ONE ×2 (09:04→09:12)
[2018-06-18] MEDS ORDERED: Lidocaine 2% PF * 5 ML VIAL ONE (09:13)
[2018-06-18] MEDS ORDERED: Propofol* 10 MG/ML 20 ML BTL IV PUSH ONE (09:13)
[2018-06-18] MEDS ORDERED: Midazolam* 1 MG/ML 2 ML VIAL (2 MG) ONE (09:13)
[2018-06-18] MEDS ORDERED: fentaNYL* 50 MCG/ML 2 ML VIAL (100 MCG VIAL) ONE ×2 (09:13→10:10)
[2018-06-18] MEDS ORDERED: Metoprolol Tartrate IV* 1 MG/ML 5 ML VIAL ONE (10:23)
[2018-06-18] MEDS ORDERED: Ondansetron INJ* 2 MG/ML VIAL ONE (10:26)
[2018-06-18] MEDS ORDERED: Conjugated Estrogens VAG CM* 42.5 gm TUBE ONE (10:38)
[2018-06-18] MEDS ORDERED: Phenylephrine IV* 40 MCG/ML 10 ML SYRINGE ONE (11:01)
[2018-06-18] MEDS ORDERED: Acetaminophen IV 1GM/100ML * 100 ML ONE (12:12)
[2018-06-18] MEDS ORDERED: Ibuprofen TAB* 600 MG ONE (12:55)
[2018-06-18] MEDS ORDERED: oxyCODONE/Acetamin 5/325 MG* TAB PO PRN (14:16)
[2018-06-18] MEDS ORDERED: Ondansetron INJ* 2 MG/ML VIAL IV PRN (14:17)
[2018-06-18] MEDS ORDERED: HYDROmorphone INJ* 0.5 MG/0.5 ML SYRINGE IV PRN (14:21)
[2018-06-18 15:55] LABS: Hematocrit 40 % (35-47); Hemoglobin 13.2 g/dl (12.0-16.0)
[2018-06-18] MEDS: glipiZIDE TAB.XL* 5 MG PO SCH (16:02)
[2018-06-18] MEDS: Ibuprofen TAB* 600 MG PO PRN (21:00)
--- NOTE | 2018-06-19 01:11 | OP ---
OPERATIVE REPORT: DATE OF OPERATION: 06/18/18 DATE OF : 44 SURGEON: Desean Osorio MD MELON PACKER: Stephy Fragoso MD ANESTHESIA: General endotracheal tube. PRE-OP DIAGNOSIS: Uterovaginal prolapse, incomplete. POST-OP DIAGNOSIS: Uterovaginal prolapse, incomplete. OPERATIVE PROCEDURE: Transvaginal hysterectomy and anterior and posterior colporrhaphy. FINDINGS: On exam under anesthesia, the cervix had second-degree prolapse. There was a second-degre e cystocele and a first-degree rectocele. The ovaries and tubes could not be well visualized during the procedure. ESTIMATED BLOOD LOSS: 200 cc. SPECIMENS: Include uterus and vagina. DESCRIPTION OF PROCEDURE: The patient was identified and procedure identified as a vag hyst, anterio r and posterior repair. The patient was taken to the operating room, prepped and draped in the usual fashion in the dorsal lithotomy position under general anesthesia. Two single-tooth tenaculums were placed in the lateral aspects of the cervix and a weighted speculum placed in the posterior vagina. The cervicovaginal junction was injected with a 1% lidocaine solution with 1:200,000 epinephrine and incision was made using the Bovie in the circumferential manner at the cervicovaginal junction. The endopelvic fascia and vagina were dissected cephalad. The cul-de-sac was entered via sharp dissecti on. The uterosacral ligaments were clamped, cut and ligated x2. The anterior peritoneal fold was id entified and entered via sharp dissection. More of the uterosacral and cardinal ligaments were clamp ed, cut and ligated using 0 Polysorb suture. The broad ligament was clamped and ligated using the Li gaSure as well as further second portions of the broad ligament. The ovarian ligaments were then cla mped, cut and ligated x2 using 0 Polysorb and the uterus was excised. Good hemostasis was verified. The uterosacral ligaments again were plicated to the vagina. The anterior vagina was incised in the midline after injection with 5 cc of 1% lidocaine with epi and the endopelvic fascia was dissected o ff the vaginal mucosa up to the level of approximately a centimeter caudal to the urethra. The endop elvic fascia was then plicated in the midline using 0 Monocryl and a good repair was noted. Vaginal mucosa was then reapproximated using 3-0 Polysorb in a running fashion. A modified Tavarez stitch was placed in the posterior vaginal fornix and the uterosacral ligaments. The vaginal cuff was then guido sed using 0 Polysorb in a [id number] fashion. The Tavarez stitch was tied down. A V incision wa s made in the perineal body after injection with another 10 cc of 1% lidocaine with epi. This was al so injected at the vaginal mucosa up into the vaginal canal. An incision was made in the midline usi ng the Metzenbaum scissors and blunt dissection in the midline was also utilized. Blunt and sharp di ssection was used to dissect the endopelvic fascia off the vaginal mucosa in the posterior aspect. T he endopelvic fascia was then plicated using again 0 Monocryl in a simple fashion. Vaginal mucosa wa s then reapproximated using 3-0 Polysorb. The perineal body was reapproximated using 0 Monocryl and the skin was closed with 4-0 Vicryl in a simple fashion. The rectum was checked and found to be free of suture. The vagina was then packed using vaginal packing. Good hemostasis was verified. All sp onge and instruments counts were correct and the patient returned to the recovery room in stable cond ition. [id number]/[facility] #: [id number]
[2018-06-19] MEDS: Ibuprofen TAB* 600 MG PO PRN ×3 (03:16→17:36)
[2018-06-19] MEDS: glipiZIDE TAB.XL* 5 MG PO SCH (08:28)
[2018-06-19] MEDS: Cholecalciferol TAB* 400 UNIT PO SCH (08:28)
[2018-06-19] MEDS: Cyanocobalamin TAB* 500 MCG PO SCH (08:28)
[2018-06-19] MEDS: Lisinopril TAB* 5 MG PO SCH (16:52)
[2018-06-20] MEDS: Ibuprofen TAB* 600 MG PO PRN ×2 (00:24→14:00)
[2018-06-20] MEDS: Cholecalciferol TAB* 400 UNIT PO SCH (08:21)
[2018-06-20] MEDS: Lisinopril TAB* 5 MG PO SCH (08:21)
[2018-06-20] MEDS: Cyanocobalamin TAB* 500 MCG PO SCH (08:21)
[2018-06-20] MEDS: glipiZIDE TAB.XL* 5 MG PO SCH (08:21)
[2018-06-20] MEDS ORDERED: Docusate CAP* 100 MG PO PRN (11:10)
[2018-06-20] MEDS ORDERED: Magnesium Hydroxide LIQ* 30 ML UDC PO PRN (11:11)
[2018-06-20 15:53] VITALS: BP 138/73
[2018-06-21] MEDS ORDERED: Scopolamine PATCH Remove* 1 NOTE MISC PATCH OFF ONE (06:00)
== END 2018-06-20 15:25 | disposition home or self-care (01) | DRG 743 ==
LOC: AA 08:10 → SSU 13:21
PROVIDERS: ADMIT Obstetrics & Gynecology; ATTEND Obstetrics & Gynecology
PROC: 0UQF7ZZ Repair Cul-de-sac, Via Natural or Artificial Opening (ICD-10-PCS; 2018-06-18)
PROC: 0JQC0ZZ Repair Pelvic Region Subcutaneous Tissue and Fascia, Open Approach (ICD-10-PCS; 2018-06-18)
PROC: 0UT97ZZ Resection of Uterus, Via Natural or Artificial Opening (ICD-10-PCS; principal; 2018-06-18 09:30)
DX: N81.2 Incomplete uterovaginal prolapse (principal); I10 Essential (primary) hypertension; E78.00 Pure hypercholesterolemia, unspecified; E11.9 Type 2 diabetes mellitus without complications; Z82.5 Family history of asthma and other chronic lower respiratory diseases; Z83.3 Family history of diabetes mellitus; Z79.84 Long term (current) use of oral hypoglycemic drugs; Z79.899 Other long term (current) drug therapy; Z88.2 Allergy status to sulfonamides; Z88.7 Allergy status to serum and vaccine
CPT/HCPCS: 36415; 85014; 85018; 88305; A9270-GY; J0690; J2001; J2250; J2405; J2704; J3010; J3490

== ENCOUNTER 2021-11-17 07:27 | Inpatient (IN) ==
[2021-11-17] MEDS ORDERED: Norepinephrine 16MCG/ML BAG NS 0 MCG/0 ML BAG IV ONE (07:52)
[2021-11-17] MEDS ORDERED: Heparin - STEMI 5,000 UNITS/ML 1 ml VIAL IV ONE ×2 (07:54→08:31)
[2021-11-17] MEDS ORDERED: Heparin DRIP 25,000 UNITS BAG 0 UNITS/0 ML BAG ONE (07:54)
[2021-11-17 07:56] LABS: ABS Basophils 0.1 10^3/ul (0-0.2); ABS Lymphocytes 0.8 10^3/ul (1.0-4.8); ABS Monocytes 0.7 10^3/ul (0-0.8); ABS Neutrophils 11.3 10^3/ul (1.5-7.7); Eosinophil % 0.4 %; Hematocrit 44 % (35-47); Hemoglobin 14.5 g/dL (12.0-16.0); Lymphocyte % 6.1 %; Mean Corpuscular HGB Conc 33 g/dL (31-36); Mean Corpuscular Hemoglobin 31 pg (27-31); Mean Corpuscular Volume 95 fL (80-97); Mean Platelet Volume 8.4 fL (7.4-10.4); Platelet Count 333 10^3/uL (150-450); Red Blood Count 4.62 10^6 /uL (3.70-4.87); Red Cell Distribution Width 14 % (10-15); White Blood Count 12.9 10^3/uL (3.5-10.8)
[2021-11-17] MEDS ORDERED: NS 0.9% 1000 ml BAG 1,000 ML IV ONE (07:56)
[2021-11-17] MEDS ORDERED: Heparin 5000 UNITS/ML 1 mL VIAL IV SCH (08:00)
[2021-11-17] MEDS ORDERED: NS 0.9% 1000 ml BAG 1,000 ML IV SCH (08:00)
[2021-11-17] MEDS ORDERED: Heparin DRIP 25,000 UNITS BAG 25,000 UNITS/500 ML BAG IV SCH ×2 (08:00→08:30)
[2021-11-17 08:10] LABS: Activated Partial Thrombo Time 24.2 seconds (26.0-38.0); INR 1.2 (0.86-1.15)
[2021-11-17] MEDS ORDERED: Heparin 1,000 UNIT/ML 10 ml (10,000 UNITS) CATHLAB/DIALYSIS ONE (08:13)
[2021-11-17] MEDS ORDERED: Heparin 2 UNITS/ML 1000 mls 2,000 ML IV ONE (08:13)
[2021-11-17] MEDS ORDERED: nitroGLYCERIN DRIP 25,000 MCG/250 ML BTL ONE (08:13)
[2021-11-17] MEDS ORDERED: VERAPAMIL 2.5 MG/ML 2 ML VIAL ** 5 mg/2 ml ONE (08:13)
[2021-11-17] MEDS ORDERED: Lidocaine 1% VIAL 10 MG/ML VIAL ONE (08:13)
[2021-11-17] MEDS ORDERED: Iohexol 350 (CONTRAST) 200 ML MDV IV ONE ×2 (08:14)
[2021-11-17 08:19] LABS: ALT 122 U/L (7-52); AST 265 U/L (13-39); Albumin 3.3 g/dL (3.2-5.2); Alkaline Phosphatase 127 U/L (35-149); Blood Urea Nitrogen 30 mg/dL (6-24); Calcium 8.7 mg/dL (8.6-10.3); Chloride 93 mmol/L (101-111); Globulin 3.2 g/dL (2-4); Glucose 397 mg/dL (70-100); LDL Cholesterol Direct 85 mg/dL; Magnesium 2.5 mg/dL (1.9-2.7); Potassium 4.9 mmol/L (3.5-5.0); Sodium 125 mmol/L (135-145); Total Protein 6.5 g/dL (6.4-8.9); eGFR CKD-EPI 46.5 (>60)
[2021-11-17] MEDS ORDERED: Iodixanol (CONTRAST) 320 MG/ML 100 ML SDV IV ONE (08:21)
[2021-11-17 08:22] LABS: Anion Gap 19 mmol/L (2-11); CO2 Carbon Dioxide 13 mmol/L (22-32)
[2021-11-17 08:23] LABS: Troponin I 39.26 ng/mL (<0.03)
[2021-11-17 08:41] LABS: PO2 Arterial 109 mmHg (80-100)
[2021-11-17] MEDS ORDERED: Morphine 2 MG/ML SYRINGE IV ONE (08:45)
[2021-11-17 08:46] LABS: PCO2 Arterial Temp Corrected <20 mmHg (35-45)
[2021-11-17] MEDS ORDERED: Heparin 5000 UNITS/ML 1 mL VIAL SUBCUT SCH (09:00)
[2021-11-17] MEDS ORDERED: fentaNYL 100 mcg/2 ml 50 MCG/ML VIAL ONE (09:11)
[2021-11-17] MEDS ORDERED: Midazolam 5 mg/5 ml VIAL 1 mg/ml 5 ml VIAL (5 mg) ONE (09:11)
[2021-11-17] MEDS ORDERED: Norepinephrine 16MCG/ML BAG NS 4,000 MCG/250 ML BAG IV ONE (09:11)
[2021-11-17] MEDS ORDERED: Bivalirudin 250 MG VIAL ONE (09:11)
[2021-11-17] MEDS ORDERED: Furosemide 40 mg/4 ml IV VIAL ONE (09:34)
[2021-11-17] MEDS ORDERED: Morphine 2 MG/ML SYRINGE IV PRN (11:16)
[2021-11-17] MEDS ORDERED: Aspirin EC 81 mg TAB.EC (enteric coated) ONE (11:33)
[2021-11-17] MEDS ORDERED: Heparin 5000 UNITS/ML 1 mL VIAL ONE (11:39)
[2021-11-17] MEDS ORDERED: Dextrose 50% Syringe 50 ml 25 GM/50 ML SYRINGE IV PUSH PRN (12:09)
[2021-11-17] MEDS ORDERED: Remdesivir 100 mg Vial 200 MG in NS 0.9% 250 ml 210 ML IV ONE (12:10)
[2021-11-17] MEDS ORDERED: methylPREDNISolone 125 mg 2 ML VIAL IV ONE (12:12)
[2021-11-17] MEDS ORDERED: Norepinephrine 16MCG/ML BAG NS 4,000 MCG/250 ML BAG IV SCH (13:00)
[2021-11-17] MEDS ORDERED: cefTRIAXone 1 gm/50 mL NS BAG 1 GM/50 ML BAG IVPB SCH (13:00)
[2021-11-17] MEDS ORDERED: Albuterol/Ipratropium NEB.SOL (2.5/0.5 MG) 3 ML NEB.SOLN INH SCH (13:00)
[2021-11-17] MEDS ORDERED: Pantoprazole VIAL 40 MG VIAL IV SCH (13:00)
[2021-11-17] MEDS ORDERED: Norepinephrine IV 1 MG/ML 4 ML VIAL ONE (14:55)
[2021-11-17] MEDS ORDERED: Sodium Bicarbonate 8.4% SYR 10 ML SYRINGE IV ONE (14:55)
[2021-11-17] MEDS ORDERED: Calcium CHLORIDE 10% SYRINGE 1 GM/10 ML ONE (14:55)
[2021-11-17] MEDS ORDERED: Amiodarone IV 150 mg/3 ml VIAL ONE (14:55)
[2021-11-17 17:01] VITALS: BP 118/45
[2021-11-17] MEDS ORDERED: methylPREDNISolone SOD 40 mg/ml 1 ml VIAL IV SCH (20:00)
[2021-11-18] MEDS ORDERED: Aspirin EC 81 mg TAB.EC (enteric coated) PO SCH (09:00)
[2021-11-18] MEDS ORDERED: Remdesivir 100 mg Vial 100 MG in NS 0.9% 250 ml 230 ML IV SCH (09:00)
== END 2021-11-17 15:13 | disposition expired | DRG 177 ==
LOC: ED 07:27 → CHICATH 07:47 → ICU 09:06
PROVIDERS: ATTEND Internal Medicine